=== PATIENT | female | born 1940 | race Caucasian/White ===

== ENCOUNTER 2024-07-12 13:35 | Emergency (ER) | payer MEDICARE, SELFPAY ==
--- OUTSIDE RECORDS SUMMARY | 2024-07-12 13:55 | XMS_ITS | Clinical Summary ---
Author Organization [facility] Address [address] [place] [address] Care Team Providers Care Astrophysics Professor Name Role Phone Anthony Suero MD Primary Care Provider [phone] Allergies Active Allergy Reactions Criticality Noted Date Comments Clonidine Hallucinations Medium 12/10/2019 Medications cholecalciferol (VITAMIN D-3) 1,000 unit capsule Take 1 capsule (1,000 Units total) by mouth daily OTC Active melatonin tablet Take 2 tablets (2 mg total) by mouth nightly as needed for sleep OTC Active aspirin 81 mg enteric coated tablet Take 1 tablet (81 mg total) by mouth daily Active calcium carbonate (OS-LIO) 1,250 mg (500 mg elemental) tablet Take 1 tablet (1,250 mg total) by mouth daily Active Additional Information Patient not taking.Reported on 06/06/2024 polyethylene glycol (MIRALAX) 17 gram packetIndicatio ns:constipation Take 1 packet (17 g total) by mouth daily as needed for constipation Active Additional Information Patient not taking.Reported on 06/06/2024 omeprazole (PriLOSEC) 20 mg capsule Take 1 capsule (20 mg total) by mouth daily Active donepeziL (ARICEPT) 5 mg tablet Take 1 tablet (5 mg total) by mouth nightly 03/26/2 024 Active diphenoxylate-a tropine (LOMOTIL) 2.5-0.025 mg per tabletIndicatio ns:diarrhea Take 1 tablet by mouth 4 (four) times a day as needed for diarrhea 30 tablet 024 Active acetaminophen (TYLENOL) 325 mg tablet Take 2 tablets (650 mg total) by mouth every 6 (six) hours as needed for pain Active furosemide (LASIX) 20 mg tablet TAKE 1 TABLET(20 MG) BY MOUTH DAILY 90 tablet 3 024 Active calcium carbonate-vitam in D3 1,250 mg (500 mg elemental)-400 unit tablet Take by mouth Calcium-500 mg Vitamin d3-20 mcg (800 international units) Active potassium chloride ER 10 mEq CR tablet TAKE 1 TABLET(10 MEQ) BY MOUTH DAILY 90 tablet 024 Active carbidopa-levod opa (SINEMET) 25-100 mg per tablet TAKE 1 TABLET BY MOUTH THREE TIMES DAILY 270 tablet 1 024 Active alendronate (FOSAMAX) 70 mg tablet TAKE 1 TABLET(70 MG) BY MOUTH EVERY 7 DAYS ON AN EMPTY STOMACH. DO NOT LIE DOWN OR EAT FOR 30 MINUTES AFTER TAKING 4 tablet 11 024 Active amLODIPine (NORVASC) 10 mg tabletIndicatio ns:Essential hypertension TAKE 1 TABLET(10 MG) BY MOUTH DAILY 90 tablet 025 Active losartan (COZAAR) 100 mg tabletIndicatio ns:Essential hypertension TAKE 1 TABLET(100 MG) BY MOUTH DAILY 90 tablet 1 025 Active metoprolol XL (TOPROL-XL) 50 mg extended release tabletIndicatio ns:Paroxysmal SVT (supraventricul ar tachycardia) (HCC) TAKE 1 TABLET(50 MG) BY MOUTH DAILY 90 tablet 025 Active losartan (COZAAR) 100 mg tabletIndicatio ns:Essential hypertension TAKE 1 TABLET(100 MG) BY MOUTH DAILY 90 tablet 1 024 2024 Discontinued metoprolol XL (TOPROL-XL) 50 mg extended release tabletIndicatio ns:Paroxysmal SVT (supraventricul ar tachycardia) (HCC) TAKE 1 TABLET(50 MG) BY MOUTH DAILY 90 tablet 024 2024 Discontinued amLODIPine (NORVASC) 10 mg tabletIndicatio ns:Essential hypertension TAKE 1 TABLET(10 MG) BY MOUTH DAILY 90 tablet 024 2024 Discontinued(R eorder) Hospital, Clinic, or Other Facility Administered Medication Ordered Dose Route Frequency Start Date End Date Status cyanocobalamin (Vitamin B-12) injection 1,000 mcgIndications:Vitamin B12 deficiency 1000 mcg IM Every 7 days 09/14/2023 Active Active Problems Problem Noted Date Diagnosed Date Parkinsonism, unspecified Parkinsonism type 01/2024 Assessment & Plan (04/28/2024 4:22 PM OAKES MACHINE OPERATOR): Continue f/u with neurology and will montior respnose. WIll continue on sinemet. Closed compression fracture of L4 vertebra 10/17 Closed compression fracture of L3 vertebra 10/17 Assessment & Plan (04/28/2024 4:22 PM OAKES MACHINE OPERATOR): Sig pain relief s/p vertebroplasty and will continue to follow response. Closed compression fracture of L2 vertebra 10/17 Skin breakdown 06/13/2023 Assessment & Plan (06/13/2023 2:28 PM OAKES MACHINE OPERATOR): Continue topical dressing and will follow with home health. Stay off bottom as much as possible. When sitting sit on soft cushions. Hospital discharge follow-up 06/13/2023 Assessment & Plan (06/13/2023 2:29 PM OAKES MACHINE OPERATOR): IVerona NP have personally reviewed pertinent inpatient and/or ED records, including discharge medications and [employer] if applicable. This patient's discharge medication list has been reviewed and reconciled with her outpatient medication list and has also been reviewed with patient and/or caregiver. I have noted any changes. Mitral regurgitation 05/19/2023 Assessment & Plan (05/24/2023 11:56 AM OAKES MACHINE OPERATOR): Last TTE 04/2023 with no WMAs, EF 62%, diastolic dysfunction present, mild LAE, mod pHTN based on RV sys pressure (~50mmHg), mild to mod TR, dilated IVC with poor inspiratory collapse c/w elevated R atrial pressures, mod-severe MV regurg, - cautious use of MIVFs - per last cards note 04/2023, plan for IVIS outpatient Giant cell arteritis (CMS/HCC) 05/18/2023 Overview (06/14/2023): - Initial patient presentation 05/18/2023: vision loss / blurry vision OS in elderly white female with elevated ESR (156.6) and CRP (>145). - Initial exam showed OS significant for reduced VA (CF at face) compared to contralateral side, rAPD, chalky-white/pallid optic disc edema, CWS. Additional supporting factors include normal cup-to-disc ratio in contralateral side (thus less likely NAION) - Temporal arteries palpated with somewhat bounding pulse bilaterally - MRI results were limited due to artifact, no evidence of orbital pathology - 05/23/2023 right temporal biopsy was non-diagnostic (specimen consisted of skeletal muscle; artery not present) - Overall, AION OS with markedly elevated ESR / CRP and fundus exam in conjunction with her demographic was highly concerning for an arteritic cause (A-AION). - Was discharged 05/27/2022 on 60 mg pred x7day, with taper 50-40-35-30 mg daily q7 days Assessment & Plan (04/28/2024 4:20 PM OAKES MACHINE OPERATOR): Continue f/u with Dr. Mackenzie. Reduced prednisone to 2mg daily and goal is to be completely off of prednisone in May 2024. Will discuss plans for add on therapy for OP in addition to oral calcium/vitamin D and ongoing add on therapy for alendronate Assessment & Plan (03/21/2024 5:13 PM CDT): Has not noticed any changes to her vision, though is feeling much better over all. Now on 5mg daily and will be tapering gradually. Will stop prednisone at the end of May. ESR/CRP collected today and will follow with rheum in June. OCT nerve show stable, unchanged, thinning HVF 24-2 was done today, 10-2 done in the past. Pt appears to continue to have some central vision and minimal peripheral vision OS. RTC in mid June Assessment & Plan (01/10/2024 2:00 PM CDT): Scheduled follow up Mar 21 with ophthalmology. Assessment & Plan (11/12/2023 5:02 PM CDT): Despite the non-diagnostic temporal artery biopsy the remainder of her background, history, testing, and exam are all entirely consistent with GCA and that a alternative diagnosis is unlikely. Following with rheumatology for immunosuppression - currently on prednisone 5mg, had discussed with actemra during previous visit (not interested in pursuing actemra at this time). Exam today overall stable. Improving visual acuity. OCT demonstrated thinning OS consistent with sequela of GCA. HVF 10-2 showed severe restriction in peripheral vision OS. Discussed at length with patient and family the irreversible nature of vision loss due to GCA RTC 4 months or sooner, HVF 10-2, DFE OU Assessment & Plan (07/27/2023 4:40 PM OAKES MACHINE OPERATOR): Despite the non-diagnostic temporal artery biopsy the remainder of her background, history, testing, and exam are all entirely consistent with GCA and that a alternative diagnosis is unlikely. Following with rheumatology for immunosuppression - currently on prednisone, had discussed with actemra during previous visit. Exam today overall stable. Stable visual acuity. OCT demonstrated thinning OS consistent with sequela of GCA. HVF 10-2 showed severe restriction in peripheral vision OS. Discussed at length with patient and family the irreversible nature of vision loss due to GCA. Discussed low-vision resources and provided brochure for [employer] to patient and family. RTC 2 months or sooner, HVF 10-2, OCT RNFL Assessment & Plan (06/17/2023 4:17 PM OAKES MACHINE OPERATOR): Seeing Rheumatology today to manage steroids. Exam today demonstrates likely vision loss bilaterally from GCA, but subjectively stable. Will continue to follow for subsequent testing. Discussed at length that despite the non-diagnostic temporal artery biopsy the remainder of her background, history, testing, and exam are all entirely consistent with GCA and that a alternative diagnosis is unlikely. Discussed at length with patient and family unfortunate poor prognosis for improvement in vision. Discussed low-vision resources and provided brochure for [employer] to patient and family. RTC 6 weeks for testing (HVF 10-2, OCT RNFL/GCC) Assessment & Plan (06/13/2023 2:29 PM OAKES MACHINE OPERATOR): Vision improving. She has follow-up with specialist. Will continue with prednisone. Assessment & Plan (05/25/2023 11:38 AM OAKES MACHINE OPERATOR): Pt reports vision blurriness for at least 12 days (her son thinks more like 7 days) that includes visual field loss. She describes her binocular vision as blurry , her monocular L eye vision as complete blackness in upper ku, and her monocular R eye vision as floaters and purple . She denies any headaches, neurologic symptoms, AMS. - In ED, ophtho examined and gave dose of methylpred 1g IV. MRI brain orbits showing severe white matter disease, but no orbit pathology. Ophtho c/f GCA - Ophtho c/s. Reevaluated pt, improved acuity, but decreased color vision. - rheumatology consulted, recommending pred 60 x7d, then prolonged taper (as described in consult note). To follow up in clinic - Pt unable to get L side biopsy because of previous facelift with scarring. R side biopsy /, pending path report - Prednisone 60mg daily - Pt will likely require bactrim at d/c Vision loss of left eye 05/18/2023 Assessment & Plan (05/26/2023 9:47 AM OAKES MACHINE OPERATOR): -Ophtho exam 1/3 showing improvement in vision acuity b/l, essentially stable from 05/20, but mildly decreased color vision. - Family would like to follow up with ophtho outpt Encounter for annual wellness exam in Medicare p atient 12/15/2021 Assessment & Plan (01/10/2024 2:19 PM CDT): Preventive exam; reviewed recommended preventive screenings and vaccinations. Encourage annual flu vaccine. Wear sunscreen/protective clothing when outdoors. Assessment & Plan (12/18/2022 9:39 AM CDT): Preventive exam; reviewed recommended preventive screenings and vaccinations. Encourage annual flu vaccine. -DEXA ordered today Assessment & Plan (12/15/2021 1:34 PM CDT): Preventive exam; reviewed recommended preventive screenings and vaccinations. Encourage annual flu vaccine. Wear sunscreen/protective clothing when outdoors. Localized swelling of right lower leg 12/15/2021 Assessment & Plan (12/15/2021 9:55 AM CDT): No injury, no recent travel, no fevers, redness or pain. Will check US to rule out dvt. Discussed need to avoid crossing legs and follow up immediately for changes. Nail fungus 08/08/2021 Assessment & Plan (06/13/2023 2:27 PM OAKES MACHINE OPERATOR): Continue with topical antifungal on hand. Also recommend soaking with warm Epsom salt soak prior to applying medication. Will monitor response. Assessment & Plan (12/15/2021 9:56 AM CDT): Using topical OTC antifungal with mild improvement. Discussed need to continue treatment and monitoring. Assessment & Plan (08/08/2021 1:00 PM CDT): Discussed topical treatment options with patient and her son. Recommended avoiding nail Finnish during treatment. May need to use coupon from drug [employer] website for medication. Patient declined referral to podiatry. Osteoporosis without current pathological fractu re 01/03/2021 Assessment & Plan (04/28/2024 4:21 PM OAKES MACHINE OPERATOR): See discussion as above. Patinet and family given information on Forteo and Evenity and discussion fo alternater mechanisms of action and also interaction with comorbiditeis. Reviewed fall prevention and patient is ambulating with assistance of a walker and rollator. Assessment & Plan (05/19/2023 1:14 AM OAKES MACHINE OPERATOR): - c/w home vit D. On calcium at home as well, she did not know dose. Ordered oscal 1250mg daily. Assessment & Plan (12/18/2022 9:39 AM CDT): Patient declines medication for treatment of osteoporosis. Continue calcium and vitamin-D supplement in addition to daily weight-bearing exercises. Repeat bone density testing ordered today. Assessment & Plan (08/08/2021 1:01 PM CDT): Patient declines treatment with Fosamax as she is concerned about side effects. She is not currently taking any calcium supplementation so this was recommended today. Discussed importance of regular weight-bearing exercise. Assessment & Plan (02/25/2021 11:53 AM CDT): The patient's son asked me about her osteoporosis and treatment. My impression based on her osteoporosis screening which was abnormal puts her at higher risk for hip fracture and so consideration for treatment of her osteoporosis would be reasonable. Assessment & Plan (01/03/2021 10:28 AM CDT): Bone density confirms osteoporosis in the hip greater than the spine. Laboratory testing has confirmed normal calcium. Will check vitamin D. Continue vitamin D supplementation Continue calcium in the diet Will start Fosamax 70 mg once weekly with 8 ounces of water. We will take this medication weekly for the next 5 years. Reviewed medication administration with patient and adult son. We will plan to recheck bone density every 2 years even while we are on therapy. BMI 24.0-24.9, adult 01/03/2021 Assessment & Plan (01/10/2024 2:19 PM CDT): No changes in weight. Appetite has been stable. Assessment & Plan (12/18/2022 9:40 AM CDT): Discussed healthy diet and importance of regular physical activity. Assessment & Plan (12/15/2021 1:34 PM CDT): Discussed healthy diet and importance of regular physical activity. Assessment & Plan (08/08/2021 12:59 PM CDT): Discussed healthy diet and importance of regular physical activity. BMI is acceptable for this patient. Assessment & Plan (01/03/2021 10:33 AM CDT): BMI is acceptable for this patient. Tinnitus, right 12/12/2019 Assessment & Plan (12/12/2019 11:22 AM CDT): Reduce caffeine intake BPPV (benign paroxysmal positional vertigo), lef t 12/12/2019 Assessment & Plan (12/23/2019 11:44 AM CDT): Left Benign Positional Vertigo Right ear ringing persists Post-Kevin maneuver instructions and Handout provided and reviewed in detail line by line Assessment & Plan (12/12/2019 11:23 AM CDT): Left Benign Positional Vertigo treated with Kevin Maneuver today Call if dizziness returns Reduce caffeine intake Post-Kevin instruction discussed and Handout provided Essential hypertension 05/12/2019 Assessment & Plan (04/28/2024 4:23 PM OAKES MACHINE OPERATOR): Stable on lsoartan and metoprolol XL. No sig orthostasis. Cnotinues on amlodipine. Assessment & Plan (01/10/2024 2:20 PM CDT): Blood pressure is well controlled, continue present management. Assessment & Plan (05/24/2023 11:50 AM OAKES MACHINE OPERATOR): - BP meds restarted, initially held for soft BP readings - restarted home metop XL 50 and losartan 100, amlo 10. - Currently normotensive Assessment & Plan (12/18/2022 9:39 AM CDT): Blood pressure is well controlled today, 122/62. Patient is currently taking losartan 100 mg, metoprolol 50 mg and amlodipine 10 mg tablet once daily. No changes made today, continue current regimen. She denies any chest pain, shortness the breath, fatigue or lower extremity edema. Assessment & Plan (12/15/2021 1:29 PM CDT): HPI: Condition is stable A&P: Discussed/ordered labs, encouraged healthy, low carbohydrate lifestyle and at least 150min/week of exercise, continue on losartan and amlodipine. Following with cardiology every 6 months. Assessment & Plan (08/08/2021 12:11 PM CDT): Stable on current medication regimen, no changes made today. Following with cardiology every 6 months. Assessment & Plan (01/03/2021 10:19 AM CDT): BP 146/62 in office today. Patient aware to call if home BP readings are elevated. Will continue to monitor. Next OV with pbx manager 02/08/21. Assessment & Plan (02/10/2020 10:24 AM CDT): Patient's blood pressure appears to be under adequate control. If additional treatment is required consideration to chlorthalidone 25 mg daily could be considered. Assessment & Plan (05/12/2019 5:28 AM OAKES MACHINE OPERATOR): Holding home losartan and amlodipine Patient was started on metoprolol. Paroxysmal SVT (supraventricular tachycardia) Assessment & Plan (04/28/2024 4:21 PM OAKES MACHINE OPERATOR): Continues on metoprolol XL and will follow response. Assessment & Plan (05/19/2023 1:06 AM OAKES MACHINE OPERATOR): Hx of this. No episodes in years. - c/w metop Assessment & Plan (12/18/2022 9:38 AM CDT): Managed by Cardiology, stable with use of metoprolol. Assessment & Plan (08/08/2021 12:11 PM CDT): Follows with cardiology. Has not had any issues after she was converted with adenosine 02/2021. Doing well on current regimen of metoprolol. Assessment & Plan (02/25/2021 11:54 AM CDT): Patient has had no recurrence of persistent SVT. She will continue with conservative management. Assessment & Plan (02/10/2020 10:24 AM CDT): Patient's PSVT remains under good control. I see no need for alteration to her medical regimen. Assessment & Plan (05/12/2019 5:35 AM OAKES MACHINE OPERATOR): Resolved with adenosine. The currently in sinus rhythm. Will continue with metoprolol. Non-STEMI (non-ST elevated myocardial infarction ) ([facility]) 05/12/2019 Assessment & Plan (05/12/2019 5:28 AM OAKES MACHINE OPERATOR): Patient currently denies any chest pain. Denies any palpitations or dizziness. States overall states that feels much better. First set of troponins were negative. Following troponins continue to trend up. EKG was negative for any acute ischemia. Will start the patient on heparin drip. Continue with metoprolol. Blood pressure on soft side. Will be holding amlodipine and losartan for now. Continue with aspirin. Nitroglycerin as needed for chest pain. Will get cardiology consult in a.m.. Telemetry monitoring Echo in a.m.. Chest pain Elevated troponin level Resolved Problems Problem Noted Date Diagnosed Date Resolved Date UTI (urinary tract infection) 05/24/2023 05/25/2023 Assessment & Plan (05/24/2023 12:07 PM OAKES MACHINE OPERATOR): UTI growing 100k E coli. Pt denies dysuria, but can get confused. - Afebrile, WBC nml, at baseline mentation at this time - Ceftriaxone 1g q24 (05/21-05/25) Vertigo 02/10/2020 02/10/2020 Encounters Date Type Department Care Team Description 06/24/2024 11:00 AM OAKES MACHINE OPERATOR Office Visit [facility] [place] [address] [place] [phone] Cece Dumont, TIER LIFT TRUCK OPERATOR Skin tear of forearm without complication, left, initial encounter (Primary Dx) 06/06/2024 2:30 PM OAKES MACHINE OPERATOR Office Visit [facility] at [address] [place] [phone] Aquilino Hill MD Nonrheumatic mitral valve regurgitation (Primary Dx) 04/28/2024 11:15 AM OAKES MACHINE OPERATOR Office Visit [facility] [address] [phone] Anthony Suero MD Giant cell arteritis (CMS/HCC) (HCC) (Primary Dx); Osteoporosis without current pathological fracture, unspecified osteoporosis type; Paroxysmal SVT (supraventricular tachycardia) (HCC); Closed compression fracture of L3 lumbar vertebra with routine healing, subsequent encounter; Parkinsonism, unspecified Parkinsonism type (HCC); Essential hypertension from Last 3 Months Immunizations Immunization Administration Dates Next Due Influenza, Quadrivalent, Hig h Dose, Preservative Free, Intrr 02/18/2021 Influenza, Trivalent, High D ose, Split, Preservative Free, Intramuscular 02/07/2020,02/25/2019,01/27/2018,02/18,02/28/2016,03/28/2014 Influenza, Trivalent, IM (MDV) 02/18/2018,2012,04/04/2012 Influenza, Trivalent, Preser vative Free, Intramuscular 03/09/2015 Influenza, Unspecified 04/03/2024,2022,03/03/2022,02/18,02/18/2019,05/20/2012 Pneumococcal Conjugate PCV 13 02/13/2018 Pneumococcal Polysaccharide PPV23 11/12/2019 Tdap 12/08/2020 ZOSTER LIVE 01/06/2013 Surgical History Surgery Date Site/Laterality Comments ABDOMINAL SURGERY iud that was implanted and had to be removed EYE SURGERY Bilateral cataracts, lens was placed also HYSTERECTOMY TONSILLECTOMY APPENDECTOMY Medical History Medical History Date Comments HTN (hypertension) Vertigo Arthritis History of transfusion Supraventricular tachycardia (HCC) Chest pain Giant cell arteritis (CMS/HCC) (HCC) 05/18/2023 Osteoporosis Family History Medical History Relation Name Comments Diabetes Father Pop pavish Relation Name Status Comments Father Pop pavish Mother Social History Tobacco Use Types Packs/Day Years Used Date Smoking Tobacco: Never Cigarettes Smokeless Tobacco: Never Tobacco Cessation:Counseling Given: Not Answered Alcohol Use Standard Drinks/Week Comments Never 0 (1 standard drink = 0.6 oz pur e alcohol) AUDIT-C Answer Date Recorded Q1: How often do you have a drink containing alcohol? Never 11/05/2023 Q2: How many drinks containi ng alcohol do you have on a typical day when you are drinking? Patient does not drink Q3: How often do you have si x or more drinks on one occasion? Never 11/05/2023 PHQ-2 Answer Date Recorded PHQ-2 Total Score (If total score is 3 or more points, staff should administer the PHQ-9) 0 04/28/2024 Personal Safety Answer Date Recorded Have you ever been in or are you currently in a harmful physical or emotional relationship or is someone making you feel afraid or unsafe? Denies 11/05/2023 Comments No Sex and Gender Information Value Date Recorded Sex Assigned at Not on file Legal Sex Female 2:17 AM OAKES MACHINE OPERATOR Gender Identity Not on file Sexual Orientation Not on file Obstetrics History Para Term AB IAB SAB Ectopic Multiple Livin g Live Births 4 4 4 Date Outcome GA Total Labor Labor//3rd Weight Sex Type Anes PTL Bertha A1 A5 Name Clin Term Term Term Term Last Filed Vital Signs Vital Sign Reading Time Taken Comments Blood Pressure 90/48 06/24/2024 11:07 AM OAKES MACHINE OPERATOR Pulse 68 06/24/2024 11:07 AM OAKES MACHINE OPERATOR Temperature 36.2 C (97.2 F) 06/24/2024 11:07 AM OAKES MACHINE OPERATOR Respiratory Rate 18 06/24/2024 11:07 AM OAKES MACHINE OPERATOR Oxygen Saturation 97% 06/24/2024 11:07 AM OAKES MACHINE OPERATOR Inhaled Oxygen Concentration - - Weight 54.9 kg (121 lb) 06/24/2024 11:07 AM OAKES MACHINE OPERATOR Height 149.9 cm (4' 11 ) 06/24/2024 11:07 AM OAKES MACHINE OPERATOR Body Mass Index 24.44 06/24/2024 11:07 AM OAKES MACHINE OPERATOR Plan of Treatment Health Maintenance Due Date Last Done Comments Hepatitis B Screening 1958 Zoster Vaccine (2 of 3) 03/03/2013 01/06/2013 Well Visit 65+ 01/09/2025 01/10/2024, 07/05/2022, 12/15/2021, Additional history exists Depression Screening 04/28/2025 04/28/2024, 01/10/2024, 10/23/2023, Additional history exists Fall Risk Assessment 04/28/2025 04/28/2024, 01/10/2024, 10/18/2023, Additional history exists Osteoporosis Screening-Bone Density Scan 03/21/2026 03/21/2024, 04/25/2023, 04/25/2023, Additional history exists DTaP/Tdap/Td Vaccine (2 - Td or Tdap) 12/08/2030 12/08/2020 Pneumococcal vaccine 65+ Completed 11/12/2019, 01/20 Influenza Vaccine Completed 04/03/2024, , 03/03/2022, Additional history exists Medical Devices Implanted Type Area Mount Loader Device Identifier Shelf Expiration Date Model / Serial / Lot [id number].tv Vertaplex Hv Autoplex Without Needle Delivery System Kit Bone [id number] - [id number] Implanted:Qty : 1 on 11/05/2023 by Harris Paez MD at [facility] Bone Cement N/A: Spine Lumbar [employer] 03/20/2025 [id number] / / [id number] Description:L2-L4 Procedures Procedure Name Priority Date/Time Associated Diagnosis Comments DEXA AXIAL SKELETON BONE DENSITY 1 OR MORE SITES Schedule Routine, Read Routine (OP Routine) 03/21/2024 12:26 PM CDT Age-related osteoporosis without current pathological fracture from Last 3 Months or Most Recently Relevant to Health Maintenance Results * Dexa Axial Skeleton Bone Density 1 or 2 Site (03/21/2024 12:26 PM CDT) Anatomical Region Laterality Modality Body N/A Radiographic Martha ging Narrative 03/21/2024 4:28 PM CDT Patient Name: Bozena Howe Date of : 1940 Date of scan: 03/21/2024 Bone mineral density was performed on a [employer] Discovery Densitometer. Based on machine cross-calibration and precision studies the least significant changes of this densitometer is 0.024 g/cm2 at the spine, 0.020 g/cm2 at the total proximal femur, and 0.014g/cm2 at the forearm. HISTORY: This is a 83 y.o. postmenopausal female with a history of osteoporosis and vitamin D deficiency. She reports that she has never smoked. She has never used smokeless tobacco. Currently on treatment with calcium, vitamin D, alendronate (Fosamax), glucocorticoids, and diuretics and current complaint of back pain. INDICATIONS: Menopause status, treatment monitoring, history of prior vertebral fracture, vitamin D deficiency, currently on 5 mg of glucocorticoids for the past 10 months, and history of osteoporosis. FINDINGS: BONE MINERAL DENSITY OF THE PROXIMAL FEMUR Bone Mineral Density (BMD) of the left hip total was found to be 0.550 gm/cm2. This corresponds to a T-score standard deviations from the mean of young adults of -3.2. Femoral neck is 0.570 gm/cm2 with a T-score (standard deviations from the mean of young adults) of -2.5. There is no previous study available for comparison. BONE MINERAL DENSITY OF THE FOREARM Bone Mineral density (BMD) of the left proximal 1/3 of the radius measures 0.471 gm/cm2. This corresponds to a T-score (standard deviations from the mean of young adults) of -3.7. There is no previous study available for comparison. A forearm bone density study was performed instead of a spine study due to history of vertebral compression fracture. SUMMARY: Bone mineral density shows evidence of osteoporosis and marked increase risk of fracture. ADDITIONAL COMMENTS: Postmenopausal Women and Men Over 50: Diagnostic criteria: Osteoporosis: BMD at or below -2.5 T-score; Osteopenia (low bone mass): BMD between -1.0 and -2.5 T-score. If the patient has a history of a fragility fracture, a fracture that occurred with trauma equivalent to a fall from a standing position or less, then the diagnosis is osteoporosis regardless of bone density. The history and data sections of the bone mineral density scan were prepared by Shira Hobbs(Gianna)(Yvonne)(BD) CBDT who is accredited by the International Society of Clinical Densitometry. The overall patient assessment and scan interpretation were performed by Rylie Salinas M.D. who is certified by the International Society of Clinical Densitometry. [id number] Fracisco De Leon MD IM DXA PROCEDURES Final Result from Last 3 Months or Most Recently Relevant to Health Maintenance Insurance MEDICARE SOLUTIONS MEDICARE SOLUTIONS [facility] MEDICARE Address: [address] [place], [place] [id number] MEDICARE SOLUTIONS [place] [id number] Advance Directives For more information, please contact: [phone] * Full Code (Latest Code Status on File) Date Activated Date Inactivated Comments 05/19/2023 2:01 AM 05/27/2023 7:22 PM * Full Code Date Activated Date Inactivated Comments 05/11/2019 8:20 PM 05/12/2019 7:47 PM Care Teams Astrophysics Professor Relationship Specialty Start Date End Date Anthony Suero MD [address] [place] [address] PCP - General Family Medicine 11/12/19
--- OUTSIDE RECORDS SUMMARY | 2024-07-12 13:55 | XMS_ITS | Referral Summary ---
Author Organization [facility] (formerly [facility]) Address [address] [place] [address] Care Team Providers Care Mine Car Mechanic Name Role Phone Unavailable Primary Care Provider Unavailabl e Source Comments [facility] (formerly [facility]),non-owned Affiliates and Associated Physician Practices is amultiple site organization consisting of ambulatory clinics and hospital sitesin [place], [place], [place] and [place]. This disclosure is being madepursuant to the Care Everywhere program and may not contain all information available regarding this patient. Last updated 18.[facility] (formerly [facility]) Allergies No known active allergies Medications * Be aware that medications may not be up to date on this document. Alwaysverify current medications with the patient. Medication Sig Dispensed Refills Start Date End Date Status LOSARTAN POTASSIUM PO Act josue AMLODIPINE BESYLATE PO Ac tive Social History Tobacco Use Types Packs/Day Years Used Date Smoking Tobacco: Never Sex and Gender Information Value Date Recorded Sex Assigned at Not on file Gender Identity Not on file Sexual Orientation Not on file Last Filed Vital Signs Vital Sign Reading Time Taken Comments Blood Pressure 124/80 07/20/2017 2:57 PM INSPECTOR FINISHING Pulse 66 07/20/2017 2:57 PM INSPECTOR FINISHING Temperature 36.8 C (98.3 F) 07/20/2017 2:57 PM INSPECTOR FINISHING Respiratory Rate - - Oxygen Saturation - - Inhaled Oxygen Concentration - - Weight 60.8 kg (134 lb) 07/20/2017 2:57 PM INSPECTOR FINISHING Height 153.7 cm (5' 0.5 ) 07/20/2017 2:57 PM INSPECTOR FINISHING Body Mass Index 25.74 07/20/2017 2:57 PM INSPECTOR FINISHING Plan of Treatment Not on file
--- OUTSIDE RECORDS SUMMARY | 2024-07-12 13:55 | XMS_ITS | Patient Health Summary ---
Author Organization [facility] Address [address] [place] [address] Care Team Providers Care Pin Game Machine Inspector Name Role Phone Unavailable Primary Care Provider Unavailabl e Note from [facility],non-owned Affiliates and Associated Physician Practices is amultiple site organization consisting of ambulatory clinics and hospital sitesin [place], [place], [place] and [place]. This disclosure is being madepursuant to the Care Everywhere program and may not contain all information available regarding this patient. Last updated 18.[facility] Allergies No known active allergies Medications * Be aware that medications may not be up to date on this document. Alwaysverify current medications with the patient. * LOSARTAN POTASSIUM PO * AMLODIPINE BESYLATE PO Social History Tobacco Use Types Packs/Day Years Used Date Smoking Tobacco: Never Sex and Gender Information Value Date Recorded Sex Assigned at Not on file Gender Identity Not on file Sexual Orientation Not on file Last Filed Vital Signs Vital Sign Reading Time Taken Comments Blood Pressure 124/80 07/20/2017 2:57 PM DIRECTOR CENTER Pulse 66 07/20/2017 2:57 PM DIRECTOR CENTER Temperature 36.8 C (98.3 F) 07/20/2017 2:57 PM DIRECTOR CENTER Respiratory Rate - - Oxygen Saturation - - Inhaled Oxygen Concentration - - Weight 60.8 kg (134 lb) 07/20/2017 2:57 PM DIRECTOR CENTER Height 153.7 cm (5' 0.5 ) 07/20/2017 2:57 PM DIRECTOR CENTER Body Mass Index 25.74 07/20/2017 2:57 PM DIRECTOR CENTER
--- OUTSIDE RECORDS SUMMARY | 2024-07-12 13:55 | XMS_ITS | Clinical Summary ---
Author Organization [facility] Address [address] [place] [address] Care Team Providers Care Storage Battery Charger Name Role Phone Unavailable Primary Care Provider Unavailabl e Source Comments [facility],non-owned Affiliates and Associated Physician Practices is amultiple site organization consisting of ambulatory clinics and hospital sitesin [place], [place], [place] and [place]. This disclosure is being madepursuant to the Care Everywhere program and may not contain all information available regarding this patient. Last updated 18.[facility] Allergies No known active allergies Medications * [...] Comments Blood Pressure 124/80 07/20/2017 2:57 PM MOBILE HOME SERVICER Pulse 66 07/20/2017 2:57 PM MOBILE HOME SERVICER Temperature 36.8 C (98.3 F) 07/20/2017 2:57 PM MOBILE HOME SERVICER Respiratory Rate - - Oxygen Saturation - - Inhaled Oxygen Concentration - - Weight 60.8 kg (134 lb) 07/20/2017 2:57 PM MOBILE HOME SERVICER Height 153.7 cm (5' 0.5 ) 07/20/2017 2:57 PM MOBILE HOME SERVICER Body Mass Index 25.74 07/20/2017 2:57 PM MOBILE HOME SERVICER Plan of Treatment Health Maintenance Due Date Last Done Comments BONE DENSITY TESTING 1940 DTAP/TDAP/TD VACCINES (1 - Tdap) 1958 PNEUMOCOCCAL VACCINE 50+ (1 of 1 - PCV) 1989 ZOSTER VACCINE (1 of 2) 1989 Respiratory Syncytial Virus (RSV) Vaccine Pt: or over 60 yrs (1 - 1-dose 75+ series) 2014 COVID-19 VACCINE (1 - 2023- season) 2024 INFLUENZA VACCINE (#1) 2024 9, 02/18/2019, 02/18/2018, Additional history exists DEPRESSION SCREENING 05/21/2024 MEDICARE AWV CALENDAR YEAR 2024 HEPATITIS B VACCINE Aged Out No longe r eligible based on patient's age to complete this topic HIB VACCINE Aged Out No longer eligi ble based on patient's age to complete this topic HPV VACCINE Aged Out No longer eligi ble based on patient's age to complete this topic MENINGOCOCCAL (Group B) VACCINE Aged Out No longer eligible based on patient's age to complete this topic MENINGOCOCCAL VACCINE Aged Out No denise angy eligible based on patient's age to complete this topic
--- OUTSIDE RECORDS SUMMARY | 2024-07-12 13:55 | XMS_ITS | Referral Summary ---
Author Organization [facility] Address [address] [place] [address] Care Team Providers Care House Supervisor Name Role Phone Anthony Suero MD Primary Care Provider + [phone] Encounters Date Type Department Care Team Description 06/24/2024 11:00 AM FOXING PAINTER Office Visit [facility] at [address] [place] [address] Cece Dumont, ARMAAN Skin tear of forearm without complication, left, initial encounter (Primary Dx) 06/06/2024 2:30 PM FOXING PAINTER Office Visit [facility] at [address] [place] [id number] Aquilino Hill MD Nonrheumatic mitral valve regurgitation (Primary Dx) 04/28/2024 11:15 AM FOXING PAINTER Office Visit [facility] [address] [address] Anthony Suero MD Giant cell arteritis (CMS/HCC) (HCC) (Primary Dx); Osteoporosis without current pathological fracture, unspecified osteoporosis type; Paroxysmal SVT (supraventricular tachycardia) (HCC); Closed compression fracture of L3 lumbar vertebra with routine healing, subsequent encounter; Parkinsonism, unspecified Parkinsonism type (HCC); Essential hypertension from Last 3 Months Allergies Active Allergy Reactions Criticality Noted Date [...] tablet (5 mg total) by mouth nightly Active diphenoxylate-a tropine (LOMOTIL) 2.5-0.025 mg per tabletIndicatio ns:diarrhea Take 1 tablet by mouth 4 (four) times a day as needed for diarrhea 30 tablet Active acetaminophen (TYLENOL) 325 mg tablet Take 2 tablets (650 mg total) by mouth every 6 (six) hours as needed for pain Active furosemide (LASIX) 20 mg tablet TAKE 1 TABLET(20 MG) BY MOUTH DAILY 90 tablet 3 Active calcium carbonate-vitam in D3 1,250 mg (500 mg elemental)-400 unit tablet Take by mouth Calcium-500 mg Vitamin d3-20 mcg (800 international units) Active potassium chloride ER 10 mEq CR tablet TAKE 1 TABLET(10 MEQ) BY MOUTH DAILY 90 tablet Active carbidopa-levod opa (SINEMET) 25-100 mg per tablet TAKE 1 TABLET BY MOUTH THREE TIMES DAILY 270 tablet 1 Active alendronate (FOSAMAX) 70 mg tablet TAKE [...] MOUTH DAILY 90 tablet 024 2024 Discontinued(R michael) Hospital, Clinic, or Other Facility Administered Medication Ordered Dose Route Frequency Start Date End Date Status cyanocobalamin (Vitamin B-12) injection 1,000 mcgIndications:Vitamin B12 deficiency 1000 mcg IM Every 7 days 09/14/2023 Active Active Problems Problem Noted Date Diagnosed Date Parkinsonism, unspecified Parkinsonism type 01/2024 Assessment & Plan (04/28/2024 4:22 PM FOXING PAINTER): Continue f/u with neurology and will montior respnose. WIll continue on sinemet. Closed compression fracture of L4 vertebra 10/17 Closed compression fracture of L3 vertebra 10/17 Assessment & Plan (04/28/2024 4:22 PM FOXING PAINTER): Sig pain relief s/p vertebroplasty and will continue to follow response. Closed compression fracture of L2 vertebra 10/17 Skin breakdown 06/13/2023 Assessment & Plan (06/13/2023 2:28 PM FOXING PAINTER): Continue topical dressing and will follow with home health. Stay off bottom as much as possible. When sitting sit on soft cushions. Hospital discharge follow-up 06/13/2023 Assessment & Plan (06/13/2023 2:29 PM FOXING PAINTER): I, Verona Garcia NP have personally reviewed pertinent inpatient and/or ED records, including discharge medications and [employer] if applicable. This patient's discharge medication list has been reviewed and reconciled with her outpatient medication list and has also been reviewed with patient and/or caregiver. I have noted any changes. Mitral regurgitation 05/19/2023 Assessment & Plan (05/24/2023 11:56 AM FOXING PAINTER): Last TTE 04/2023 with no WMAs, EF [...] days Assessment & Plan (04/28/2024 4:20 PM FOXING PAINTER): Continue f/u with Dr. Mackenzie. Reduced prednisone [...] OU Assessment & Plan (07/27/2023 4:40 PM FOXING PAINTER): Despite the non-diagnostic temporal artery biopsy the remainder of her background, history, testing, and exam are all entirely consistent with GCA and that a alternative diagnosis is unlikely. Following with rheumatology for immunosuppression - currently on prednisone, had discussed with marci during previous visit. Exam today overall stable. [...] RNFL Assessment & Plan (06/17/2023 4:17 PM FOXING PAINTER): Seeing Rheumatology today to manage steroids. Exam [...] RNFL/GCC) Assessment & Plan (06/13/2023 2:29 PM FOXING PAINTER): Vision improving. She has follow-up with specialist. Will continue with prednisone. Assessment & Plan (05/25/2023 11:38 AM FOXING PAINTER): Pt reports vision blurriness for at least [...] previous facelift with scarring. R side biopsy 05/23, pending path report - Prednisone 60mg daily - Pt will likely require bactrim at d/c Vision loss of left eye 05/18/2023 Assessment & Plan (05/26/2023 9:47 AM FOXING PAINTER): -Ophtho exam 05/23 showing improvement in vision acuity b/l, essentially [...] 08/08/2021 Assessment & Plan (06/13/2023 2:27 PM FOXING PAINTER): Continue with topical antifungal on hand. Also recommend soaking with warm Epsom salt soak prior to applying medication. Will monitor response. Assessment & Plan (12/15/2021 9:56 AM CDT): Using topical OTC antifungal with mild improvement. Discussed need to continue treatment and monitoring. Assessment & Plan (08/08/2021 1:00 PM CDT): Discussed topical treatment options with patient and her son. Recommended avoiding nail Martiniquais during treatment. May need to use coupon from drug [employer] website for medication. Patient declined referral to podiatry. Osteoporosis without current pathological fractu re 01/03/2021 Assessment & Plan (04/28/2024 4:21 PM FOXING PAINTER): See discussion as above. Patinet and family given information on Forteo and Evenity and discussion fo alternater mechanisms of action and also interaction with comorbiditeis. Reviewed fall prevention and patient is ambulating with assistance of a walker and rollator. Assessment & Plan (05/19/2023 1:14 AM FOXING PAINTER): - c/w home vit D. On calcium [...] 05/12/2019 Assessment & Plan (04/28/2024 4:23 PM FOXING PAINTER): Stable on lsoartan and metoprolol XL. No sig orthostasis. Cnotinues on amlodipine. Assessment & Plan (01/10/2024 2:20 PM CDT): Blood pressure is well controlled, continue present management. Assessment & Plan (05/24/2023 11:50 AM FOXING PAINTER): - BP meds restarted, initially held for [...] Will continue to monitor. Next OV with photographer aerial 02/08/21. Assessment & Plan (02/10/2020 10:24 AM CDT): Patient's blood pressure appears to be under adequate control. If additional treatment is required consideration to chlorthalidone 25 mg daily could be considered. Assessment & Plan (05/12/2019 5:28 AM FOXING PAINTER): Holding home losartan and amlodipine Patient was started on metoprolol. Paroxysmal SVT (supraventricular tachycardia) Assessment & Plan (04/28/2024 4:21 PM FOXING PAINTER): Continues on metoprolol XL and will follow response. Assessment & Plan (05/19/2023 1:06 AM FOXING PAINTER): Hx of this. No episodes in years. [...] regimen. Assessment & Plan (05/12/2019 5:35 AM FOXING PAINTER): Resolved with adenosine. The currently in sinus rhythm. Will continue with metoprolol. Non-STEMI (non-ST elevated myocardial infarction ) ([facility]) 05/12/2019 Assessment & Plan (05/12/2019 5:28 AM FOXING PAINTER): Patient currently denies any chest pain. Denies [...] 05/25/2023 Assessment & Plan (05/24/2023 12:07 PM FOXING PAINTER): UTI growing 100k E coli. Pt denies dysuria, but can get confused. - Afebrile, WBC nml, at baseline mentation at this time - Ceftriaxone 1g q24 (05/21-05/25) Vertigo 02/10/2020 02/10/2020 Immunizations Immunization Administration Dates Next Due Influenza, Quadrivalent, Hig h Dose, Preservative Free, Intrr 02/18/2021 Influenza, Trivalent, High D ose, Split, Preservative Free, Intramuscular 02/07/2020,02/25/2019,01/27/2018,02/18,02/28/2016,03/28/2014 Influenza, Trivalent, IM (MDV) 02/18/2018,2012,04/04/2012 Influenza, Trivalent, Preser vative Free, Intramuscular 03/09/2015 Influenza, Unspecified 04/03/2024,2022,03/03/2022,02/18,02/18/2019,05/20/2012 Pneumococcal Conjugate PCV 13 02/13/2018 Pneumococcal Polysaccharide PPV23 11/12/2019 Tdap 12/08/2020 ZOSTER LIVE 01/06/2013 Social History Tobacco Use Types Packs/Day Years [...] on file Legal Sex Female 2:17 AM FOXING PAINTER Gender Identity Not on file Sexual Orientation Not on file Last Filed Vital Signs Vital Sign Reading Time Taken Comments Blood Pressure 90/48 06/24/2024 11:07 AM FOXING PAINTER Pulse 68 06/24/2024 11:07 AM FOXING PAINTER Temperature 36.2 C (97.2 F) 06/24/2024 11:07 AM FOXING PAINTER Respiratory Rate 18 06/24/2024 11:07 AM FOXING PAINTER Oxygen Saturation 97% 06/24/2024 11:07 AM FOXING PAINTER Inhaled Oxygen Concentration - - Weight 54.9 kg (121 lb) 06/24/2024 11:07 AM FOXING PAINTER Height 149.9 cm (4' 11 ) 06/24/2024 11:07 AM FOXING PAINTER Body Mass Index 24.44 06/24/2024 11:07 AM FOXING PAINTER Plan of Treatment Not on file Medical Devices Implanted Type Area Icing Maker Device Identifier Shelf Expiration Date Model / Serial / Lot [place] [employer] Vertap[employer]ople[employer] Without Needle Delivery System Kit Bone [id number] - [id number] Implanted:Qty : 1 on 11/05/2023 by Harris Paez MD at [facility] Bone Cement N/A: Spine Lumbar [employer] 03/20/2025 [id number] / / [id number] Description:L2-L4 Procedures Procedure Name Priority Date/Time Associated [...] Bone mineral density was performed on a [employer] Discovery Densitometer. Based on machine cross-calibration and [...] mineral density scan were prepared by Shira Peña)(Yvonne)(STACI) CBDSha who is accredited by the International Society of Clinical Densitometry. The overall patient assessment and scan interpretation were performed by Rylie Salinas M.D. who is certified by the International Society of Clinical Densitometry. [id number] Fracisco De Leon MD IMG DXA PROCEDURES Final Result from Last 3 Months or Most Recently Relevant to Health Maintenance Insurance MEDICARE SOLUTIONS MEDICARE SOLUTIONS [place] [address] MEDICARE SOLUTIONS Advance Directives For more information, please contact: [phone] * Full Code (Latest Code Status on File) Date Activated Date Inactivated Comments 05/19/2023 2:01 AM 05/27/2023 7:22 PM * Full Code Date Activated Date Inactivated Comments 05/11/2019 8:20 PM 05/12/2019 7:47 PM Care Teams House Supervisor Relationship Specialty Start Date End Date Anthony Suero MD [address] [place] [address] PCP - General Family Medicine 11/12/19
--- OUTSIDE RECORDS SUMMARY | 2024-07-12 13:55 | XMS_ITS | Clinical Summary ---
Author Organization [facility] Address [address] [place] [address] Phone Care Team Providers Care Nurse Practitioner Name Role Phone Anthony Suero MD Primary Care Provider [phone] Scotty Orozco MD Unavailable [phone] Allergies Active Allergy Reactions Criticality Noted Date Comments Clonidine Hallucinations Medium 12/10/2019 Medications losartan potassium-hydr ochlorothiazid e (HYZAAR) 100-25 MG Tablet Take 1 Tab by mouth daily. Active amoxicillin-cl avulanate (AUGMENTIN) 875-125 MG Tablet 1 tablet by mouth twice daily with food. 10 Tab 07/05/19 19 Active Additional Information Patient not taking.Reported on 06/16/2024 Acetaminophen 325 MG Capsule Take 2 Tablets by mouth every 6 hours. as needed for pain 06/09/19 Active amLODIPine (NORVASC) 10 MG Tablet Take 10 mg by mouth daily. Active aspirin EC 81 MG Tablet Delayed Response Take 81 mg by mouth daily. Active calcium carbonate (OS-LIO) 1250 (500 Ca) MG Tablet Take 1 Tablet by mouth daily. Active metoprolol Succinate (TOPROL-XL) 50 MG TABLET SR 24 HR Take 100 mg by mouth daily. Active PREDNISONE, LAWRENCE, PO Take 40 mg by mouth daily. Take for 7 days. Ending on06/13/23 Active predniSONE (DELTASONE) 10 MG Tablet Take 5 mg by mouth daily. 12.5mg daily 06/20/19 Active OMEPRAZOLE PO Take 20 mg by mouth daily. Take before breakfast Active alendronate (FOSAMAX) 70 MG Tablet Take 70 mg by mouth every 7 days. Take 1 tablet (70mg) by mouth every 7 days on an empty stomach Do not lie down or eat for 30 minutes after taking 06/19/19 Active furosemide (LASIX) 20 MG Tablet Take 20 mg by mouth daily. Active potassium chloride SA (KLORCON M) 10 MEQ Tablet Controlled ReleaseIndicat ions:Hypokalem ia Take 10 mEq by mouth daily. Take 1 tablet (10 meq) by mouth daily Indications: Low Amount of Potassium in the Blood 07/12/19 Active VITAMIN D PO Take by mouth. Ac tive donepezil (ARICEPT) 5 MG Tablet Take 1 Tablet by mouth nightly. 90 Tablet 1 02/19/20 Active cyanocobalamin (VITAMIN B-12) 1000 MCG/ML Solution 1,000 mcg by Intramuscular route once a week. 09/14/19 24 Active carbidopa-levo dopa (SINEMET) 25-100 MG Tablet Take 2 Tablets by mouth 3 times daily. 180 Tablet 3 06/16/19 25 Active carbidopa-levo dopa (SINEMET) 25-100 MG Tablet Take 1 Tablet by mouth 3 times daily. 05/15/20 24 025 Discontin ued(Reord er) Active Problems Problem Noted Date Diagnosed Date Mitral regurgitation 05/19/2023 Overview (08/10/2023): Last Assessment & Plan: Last TTE 04/2023 with no WMAs, EF 62%, diastolic dysfunction present, mild LAE, mod pHTN based on RV sys pressure (~50mmHg), mild to mod TR, dilated IVC with poor inspiratory collapse c/w elevated R atrial pressures, mod-severe MV regurg, - cautious use of MIVFs - per last cards note 04/2023, plan for IVIS outpatient Giant cell arteritis 05/18/2023 Overview (08/10/2023): - Initial patient presentation 05/18/2023: vision loss [...] with taper 50-40-35-30 mg daily q7 days Last Assessment & Plan: Despite the non-diagnostic temporal artery biopsy the remainder of her background, history, testing, and exam are all entirely consistent with GCA and that a alternative diagnosis is unlikely. Following with rheumatology for immunosuppression - currently on prednisone, had discussed with marci during previous visit. Exam today overall stable. Stable visual acuity. OCT demonstrated thinning OS consistent with sequela of GCA. F 10-2 showed severe restriction in peripheral vision OS. Discussed at length with patient and family the irreversible nature of vision loss due to GCA. Discussed low-vision resources and provided brochure for [employer] to patient and family. RTC 2 months or sooner, [facility] 10-2, OCT RNFL Encounters Date Type Department Care Team Description 06/16/2024 11:00 AM CLERK CARRIER [facility] [address] [place] [address] Scotty Orozco MD Parkinson's disease without dyskinesia or fluctuating manifestations (HCC) (Primary Dx); Giant cell arteritis (HCC); Cognitive decline Discharge Disposition: Discharged to home or Selfcare 06/14/2024 Travel from Last 3 Months Immunizations Immunization Administration Dates Next Due Influenza Vaccine less than 3 yrs 02/18/2018 Family History Medical History Relation Name Comments Diabetes Father Stroke Father Relation Name Status Comments Father Mother Social History Tobacco Use Types Packs/Day Years Used Date Smoking Tobacco: Never Smokeless Tobacco: Never Tobacco Cessation:Counseling Given: Not Answered Alcohol Use Standard Drinks/Week Comments No 0 (1 standard drink = 0.6 oz pur e alcohol) [facility] Utilities Answer Date Recorded In the past 12 months has e electric, gas, oil, or water company threatened to shut off services in your home? No 08/10/2023 Social Connection and Isolat ion Panel [NHANES] Answer Date Recorded In a typical week, how many times do you talk on the phone with family, friends, or neighbors? More than three times a week 08/10/2023 How often do you get togethe r with friends or relatives? More than three times a week 08/10/2023 How often do you attend chur ch or cheondoism services? Never 08/10/2023 Do you belong to any clubs o r organizations such as sabianist groups, unions, fraternal or athletic groups, or school groups? Yes 08/10/2023 How often do you attend meet ings of the clubs or organizations you belong to? 1 to 4 times per year 08/10/2023 Are you , , di vorced, , never , or living with a partner? 08/10/2023 AUDIT-C Answer Date Recorded Q1: How often do you have a drink containing alcohol? Never 08/10/2023 Q2: How many drinks containi ng alcohol do you have on a typical day when you are drinking? Patient does not drink Q3: How often do you have si x or more drinks on one occasion? Never 08/10/2023 Overall Financial Resource Strain (CARDIA) Answe r Date Recorded How hard is it for you to pa y for the very basics like food, housing, medical care, and heating? Not hard at all 08/10/2023 [facility] Occup[facility] ional [facility] - Occupational Stress Questionnaire Answer Date Recorded Do you feel stress - tense, restless, nervous, or anxious, or unable to sleep at night because your mind is troubled all the time - these days? Not at all 08/10/2023 Exercise Vital Sign Answer Date Recorde d On average, how many days pe r week do you engage in moderate to strenuous exercise (like a brisk walk)? 2 days 08/10/2023 On average, how many minutes do you engage in exercise at this level? 10 min 08/10/2023 Hunger Vital Sign Answer Date Recorded Within the past 12 months, y ou worried that your food would run out before you got the money to buy more. Never true 08/10/19 24 Within the past 12 months, t he food you bought just didn't last and you didn't have money to get more. Never true 08/10/2023 PRAPARE - Transportation Answer Date Re corded In the past 12 months, has l ack of transportation kept you from medical appointments or from getting medications? No 07/20 In the past 12 months, has l ack of transportation kept you from meetings, work, or from getting things needed for daily living? No 08/10/2023 Housing Stability Vital Sign Answer Zelalem e Recorded In the last 12 months, was t here a time when you were not able to pay the mortgage or rent on time? No 08/10/2023 In the last 12 months, how many places have you lived? 1 08/10/2023 In the last 12 months, was t here a time when you did not have a steady place to sleep or slept in a chcf (including now)? No 08/10/2023 Comments No Sex and Gender Information Value Date Recorded Sex Assigned at Not on file Legal Sex Female 8:44 PM CDT Gender Identity Not on file Sexual Orientation Not on file Last Filed Vital Signs Vital Sign Reading Time Taken Comments Blood Pressure 120/58 06/16/2024 10:43 AM CLERK CARRIER Pulse 58 06/16/2024 10:43 AM CLERK CARRIER Temperature 36.1 C (97 F) 06/16/2024 10:43 AM CLERK CARRIER Respiratory Rate 16 06/16/2024 10:4 3 AM CLERK CARRIER Oxygen Saturation 89% 06/16/2024 10: 43 AM CLERK CARRIER Inhaled Oxygen Concentration - - Weight 55.7 kg (122 lb 12.8 oz) 025 10:43 AM CLERK CARRIER Height 152.4 cm (5') 06/16/2024 10:43 AM CLERK CARRIER Body Mass Index 23.98 06/16/2024 10:43 AM CLERK CARRIER Plan of Treatment Upcoming Encounters Date Type Department Care Team (Late st Contact Info) Description 12/23/2024 11:00 AM CDT Office Visit [facility] - Neurology [facility] [address] [place] [address] Scotty Orozco MD [address] [place] [address] Health Maintenance Due Date Last Done Comments Hepatitis C Virus (HCV) Screening 1940 Respiratory Syncytial Virus (RSV) Immunization (Adult) (1 - 1-dose 75+ series) 2014 Zoster Immunization (3 of 3) 02/28/2021 01/03/2021, 01/06/2013 SARS-COV-2 Immunization ( season) 2024 03/12/2024, 02/15/2023, 03/09/2022, Additional history exists DEXA Bone Density 03/21/2026 03/21/2024, , 12/09/2020 Pneumococcal Immunization (50+ years) Completed 11/12/2019, 02/13/2018 Pneumococcal Immunization Combined Discontinued 11/12/2019, 02/13/2018 DTaP/Tdap/Td Immunization Discontinued 12/08/2020 TdaP Immunization Completed 12/08/2020 Influenza Immunization Completed , 03/07/2024, 03/08/2023, Additional history exists Hepatitis B Immunization Aged Out No longer eligible based on patient's age to complete this topic Meningococcal Immunization (ACWY) Aged Out No longer eligible based on patient's age to complete this topic Rotavirus Immunization Aged Out No lo nger eligible based on patient's age to complete this topic Insurance MEDICARE C [facility] Advance Directives * Full Code (Latest Code Status on File) Date Activated Date Inactivated Comments 06/19/2023 8:10 AM Care Teams Nurse Practitioner Relationship Specialty Start Date End Date Anthony Suero MD [address] [place] [address] PCP - General Internal Medicine 06/11/23 Scotty Orozco MD [address] [place] [address] Consulting Physician Neurology 08/14/23
--- OUTSIDE RECORDS SUMMARY | 2024-07-12 13:55 | XMS_ITS | Continuity of Care Document ---
Author Organization [facility] Address [address] [place] [address] Phone Care Team Providers Care Rebar Bender Name Role Phone Boom Hernandez MD Unavailable Unavailable Advance Directives Directive Yes / No Effective Date File Name No Information Encounters Encounter Description Practice Location Reason(s) For Visit Diagnoses Date Provider Providers Copied on Encounter [facility], [address], [place], [place], [id number], [place] tel:[phone] [address]rin[address] Rosemary [place] No Information 1 David Nur. [address] [facility], [facility], [place], [place], [id number], [place]. tel:[phone] Family History Family Member Type Diagnosis Age At Onset No Information Payers Payer name Insurance type Covered green party ID Authoriza tion(s) No Information Social History Type Description Quantity Date Captured Comments Sex Female Smoking Status No Information Chief Complaint And Reason For Visit No Information Reason For Referral Reason For Referral No Information History Of Present Illness Encounter Date Complaint History Of Prese nt Illness No Information Functional Status Date Functional Assessmen t No Information Instructions Date Instruction Additional Infor mation No Information Assessments Type Assessment Date No Information Patient Care Teams Name Effective Dates (start - stop) Status Members No Information
--- OUTSIDE RECORDS SUMMARY | 2024-07-12 13:58 | XMS_ITS | Continuity of Care Document ---
Author Organization [facility] Address [address] [place] [address] Phone Care Team Providers Care Product Evangelist Name Role Phone Boom Hernandez MD Unavailable Unavailable Advance Directives Directive Yes / No Effective Date File Name No Information Encounters Encounter Description Practice Location Reason(s) For Visit Diagnoses Date Provider Providers Copied on Encounter [facility], [address], [place], [place], [id number], [place] tel:[phone] [address] Srinivas Rosemary [place] No Information 1 David Nur. [address] [facility], [facility], [place], [place], [address], [place]. tel:[phone] Family History Family Member Type Diagnosis Age [...]
[2024-07-12 14:00] VITALS: BP 99/45; PULSE 61; RESP 20; TEMP 36.2; O2SAT 100
[2024-07-12 14:30] LABS: EDUAAPPEAR Cloudy; EDUABILI Negative (Negative); EDUABLOOD 2+ (Negative); EDUACOLOR1 Yellow; EDUAGLUCOSE Negative (Negative); EDUAKETONE Negative (Negative); EDUALEUKO 3+ (Negative); EDUANITRATE Positive (Negative); EDUAPROTEIN 1+ (Negative); EDUAUROBILI 0.2
--- NOTE | 2024-07-12 15:19 | ED_ITS ---
HPI - General Adult General Chief complaint: Urogenital-Female Stated complaint: uti Source: patient Mode of arrival: ambulatory Limitations: no limitations History of Present Illness HPI narrative: Patient brought in by daughter with reports of urinary symptoms. Daughter indicates grandson went to check on patient and she had urinated in her bed. Daughter indicates her mother has had darker appearance to her urine and has had urinary frequency. No fever, abdominal pain, flank pain, nausea or vomiting. Daughter states that pt has been seen by neurology and is being assessed for Parksinson's. Over the past few days, pt has seemed more confused. Pt has family members that check on her daily as she has wanted to continue to live independently. Related Data Home Medications ?Medication ?Instructions ?Recorded ?Confirmed ?Last Taken ?Type aspirin 81 mg tablet,delayed 81 mg PO DAILY 05/28/19 05/28/19 Unknown History release (Adult Aspirin Regimen) metoprolol succinate 50 mg capsule 50 mg PO DAILY 05/28/19 05/28/19 Unknown History sprinkle, ext. release 24 hr nitroglycerin 0.4 mg sublingual 0.4 mg sublingual Q5M PRN 05/28/19 05/28/19 Unknown History tablet meclizine 12.5 mg tablet 12.5 mg PO BID PRN 06/30/19 Unknown History alendronate 70 mg tablet mg PO 07/12/24 Unknown History carbidopa 25 mg-levodopa 100 mg tablet 07/12/24 Unknown History tablet donepezil 5 mg tablet mg 07/12/24 Unknown History furosemide 20 mg tablet mg 07/12/24 Unknown History potassium chloride 10 mEq meq PO 07/12/24 Unknown History tablet,extended release Allergies Allergy/AdvReac Type Severity Reaction Status Date / Time clonidine Allergy Unknown Hallucinati Verified 07/12/24 14:13 ng Review of Systems Review of Systems: CONSTITUTIONAL: Denies fever, chills, or sweats. EYES: Denies visual changes, redness, or discharge. ENT: Denies rhinorrhea, congestion, sore throat, or otalgia. CARDIOVASCULAR: Denies chest pain, palpitations, or edema. RESPIRATORY: Denies cough or dyspnea. GASTROINTESTINAL: Denies abdominal pain, nausea, vomiting, or diarrhea. GENITOURINARY: Reports darkened appearance of the urine, urinary frequency SKIN: Denies rash or itching. MUSCULOSKELETAL: Denies back pain, joint pain, or myalgia. NEUROLOGIC: Reports slight confusion over the past few days. Denies headache, numbness, dizziness, or weakness. PSYCHIATRIC: Denies anxiety or depression. [facility] Past Medical History Medical History SVT (supraventricular tachycardia) Surgical History Surgical History History of appendectomy History of bladder suspension procedure Hx of tonsillectomy H/O: hysterectomy Family History Family History Father Cerebrovascular accident Sibling Family history of cardiovascular disease Social History Social History Smoking status: Never smoker Second hand tobacco smoke exposure: No Alcohol intake: never Exam Narrative: GENERAL: Well-appearing, well-nourished, and in no acute distress. HEAD: Normocephalic, atraumatic. EYES: PERRLA and EOMI. ENT: Nares clear, no rhinorrhea or epistaxis. Mucous membranes moist. Oropharynx without tonsillar hypertrophy exudate or other lesions. Bilateral TMs pearly staples nonbulging NECK: Supple. No adenopathy or masses. No carotid bruits or JVD CHEST: Clear to auscultation. No respiratory distress. No wheezes rales or rhonchi HEART: Regular rate and rhythm. No murmur heard. Normal peripheral pulses. ABDOMEN: Soft, nondistended, normal active bowel sounds. Mild suprapubic tenderness without rebound or guarding. EXTREMITIES: Normal range of motion. No edema. SKIN: Warm, dry, no rash. NEURO: No focal deficits. Alert and oriented x3. PSYCH: Normal mood and affect. Course Course Emergency Course: This is an 84-year-old female who presented for evaluation of urinary symptoms. Her urine today's nitrite positive. Will send urine for culture. Patient is actually oriented x3 and would like to be discharged home. Daughter is c omfortable with that plan. Multiple family members call her daily and she has daily visit from family. A family member will be able to stay with her overnight. Will dc with cephalexin. She was advised to increase hydration and go to the ER if she has worsening symptoms. Pt and daughter both in agreement with plan of care. Level of Care: Express Care Visit Vital Signs Vital signs: Vital Signs Temperature 36.2 C L 07/12/24 14:00 Pulse Rate 61 07/12/24 14:00 Respiratory Rate 20 07/12/24 14:00 Blood Pressure 99/45 L 07/12/24 14:00 Pulse Oximetry 100 07/12/24 14:00 Oxygen Delivery Room Air 07/12/24 14:00 Temperature 36.2 C L 07/12/24 14:00 Pulse Rate 61 07/12/24 14:00 Respiratory Rate 20 07/12/24 14:00 Blood Pressure 99/45 L 07/12/24 14:00 Pulse Oximetry 100 07/12/24 14:00 Oxygen Delivery Room Air 07/12/24 14:00 Medical Decision Making Vital Signs Vital Signs: Vital Signs Temperature 36.2 C L 07/12/24 14:00 Pulse Rate 61 07/12/24 14:00 Respiratory Rate 20 07/12/24 14:00 Blood Pressure 99/45 L 07/12/24 14:00 Pulse Oximetry 100 07/12/24 14:00 Oxygen Delivery Room Air 07/12/24 14:00 Temperature 36.2 C L 07/12/24 14:00 Pulse Rate 61 07/12/24 14:00 Respiratory Rate 20 07/12/24 14:00 Blood Pressure 99/45 L 07/12/24 14:00 Pulse Oximetry 100 07/12/24 14:00 Oxygen Delivery Room Air 07/12/24 14:00 Lab Data Labs: Lab Results 07/12/24 Range/Units 14:20 POC Urine Color Yellow POC Urine Clarity Cloudy POC Urine pH 6.0 POC Ur Specif Bayard 1.020 POC Urine Protein 1+ (Negative) POC Ur Glucose (UA) Negative (Negative) POC Urine Ketones Negative (Negative) POC Urine Blood 2+ (Negative) POC Urine Nitrite Positive (Negative) POC Urine Bilirubin Negative (Negative) POC Urine Urobilinogen 0.2 POC U Leukocyte Esteras 3+ (Negative) Discharge Plan Discharge Clinical Impression: UTI (urinary tract infection) Patient Disposition: Home, Self-Care Condition: Stable Instructions: Antibiotic Form, Urinary Tract Infection in Older Adults (ED) Patient Language: Yoruba Prescriptions: New cephalexin 500 mg capsule 500 mg PO Q12H Qty: 14 0RF No Action donepezil 5 mg tablet alendronate 70 mg tablet PO potassium chloride 10 mEq tablet extended release PO furosemide 20 mg tablet carbidopa-levodopa 25-100 mg tablet meclizine 12.5 mg tablet 12.5 mg PO BID PRN metoprolol succinate 50 mg capsule,sprinkle,ER 24hr 50 mg PO DAILY aspirin [Adult Aspirin Regimen] 81 mg tablet,delayed release (DR/EC) 81 mg PO DAILY nitroglycerin 0.4 mg tablet, sublingual 0.4 mg SUBLINGUAL Q5M PRN amlodipine 10 mg tablet See Rx Instructions .ROUTE .COMPLEX Qty: 90 1RF Dose Instruction: TAKE 1 TABLET BY MOUTH DAILY Rx Instructions: TAKE 1 TABLET BY MOUTH DAILY losartan 100 mg tablet 100 mg PO DAILY Qty: 90 1RF Follow-up/Referrals: Harms,Anthony Yee M.D. [Primary Care Provider] - Time of Disposition: 15:18
== END 2024-07-12 15:23 | disposition home or self-care (01) ==
PROVIDERS: Emergency Provider Nurse Practitioner; PCP Family Medicine
DX: N39.0 Urinary tract infection, site not specified (principal); B96.20 Unspecified Escherichia coli [E. coli] as the cause of diseases classified elsewhere; Z79.82 Long term (current) use of aspirin
CPT/HCPCS: 81003; 87086; 87186; 99213; G0463

== ENCOUNTER 2024-08-15 13:33 | Emergency (ER) | payer MEDICARE, SELFPAY ==
--- NOTE | ~2024-08-15 | XR_ITS ---
EXAMINATION: XR shoulder LT min 2V, XR humerus LT DATE: 08/15/2024 14:24 INDICATION: Generalized left upper arm and shoulder pain post injury with palpable pop TECHNIQUE: 1. AP internally and externally rotated, AP oblique externally rotated and transscapular Y views of t he left shoulder were obtained. 2. AP and lateral views of the left humerus were obtained. COMPARISON: None FINDINGS: Normal alignment. No fracture.Moderate left glenohumeral and acromioclavicular osteoarthritis. Mild osteoarthritis at the left elbow. Multiple small round dystrophic calcifications versus tiny phleboli ths project over the subcutaneous tissues along the left upper arm. Soft tissues are otherwise unrema rkable. Visualized portion of the left lung are clear. 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 No acute osseous a bnormality. Reviewed, dictated and finalized at location B. IMPRESSION: Polyarticular osteoarthritis, moderate at the left shoulder and mild at the elb ow. No acute osseous abnormality.
[2024-08-15 13:37] VITALS: BP 100/54; PULSE 67; RESP 20; TEMP 36; O2SAT 100
--- OUTSIDE RECORDS SUMMARY | 2024-08-15 13:42 | XMS_ITS | Continuity of Care Document ---
Author Organization [facility] Address [address] [place] [address] Phone Care Team Providers Care Embedded Software Development Engineer Name Role Phone Boom Hernandez MD Unavailable Unavailable Advance Directives Directive Yes / No Effective Date File Name No Information Encounters Encounter Description Practice Location Reason(s) For Visit Diagnoses Date Provider Providers Copied on Encounter [facility], [address], [place], [place], [id number], [place] tel:[phone] SEC Srinivas Rosemary York No Information 1 David Nur. [address] [facility], [facility], [place], [place], [address], [place]. tel:[phone] Family History Family Member Type Diagnosis Age At Onset No Information Payers Payer name Insurance type Covered alliance party ID Authoriza tion(s) No Information Social [...]
--- OUTSIDE RECORDS SUMMARY | 2024-08-15 13:42 | XMS_ITS | Clinical Summary ---
Author Organization [facility] Address [address] [place] [address] Care Team Providers Care Container Crane Operator Name Role Phone Anthony Suero MD Primary Care Provider [phone] Allergies Active Allergy Reactions Criticality Noted Date [...] Active Additional Information Patient not taking.Reported on 07/17/2024 polyethylene glycol (MIRALAX) 17 gram packetIndicatio ns:constipation Take 1 packet (17 g total) by mouth daily as needed for constipation Active Additional Information Patient not taking.Reported on 07/17/2024 omeprazole (PriLOSEC) 20 mg capsule Take 1 capsule (20 mg total) by mouth daily Active diphenoxylate-a tropine (LOMOTIL) 2.5-0.025 mg per [...] AFTER TAKING 4 tablet 11 024 Active losartan (COZAAR) 100 mg tabletIndicatio ns:Essential hypertension TAKE 1 TABLET(100 MG) BY MOUTH DAILY 90 tablet 1 025 Active metoprolol XL (TOPROL-XL) 50 mg extended release tabletIndicatio ns:Paroxysmal SVT (supraventricul ar tachycardia) TAKE 1 TABLET(50 MG) BY MOUTH DAILY 90 tablet 025 Active cephalexin (KEFLEX) 500 mg capsule Take 1 capsule (500 mg total) by mouth every 12 (twelve) hours 025 Active amLODIPine (NORVASC) 5 mg tabletIndicatio ns:Essential hypertension TAKE 1 TABLET BY MOUTH DAILY 90 tablet 025 Active losartan (COZAAR) 50 mg tabletIndicatio ns:Essential hypertension TAKE 1 TABLET(50 MG) BY MOUTH DAILY 90 tablet 025 Active donepeziL (ARICEPT) 5 mg tablet Take 1 tablet (5 mg total) by mouth nightly 90 tablet 1 025 Active donepeziL (ARICEPT) 5 mg tablet Take 1 tablet (5 mg total) by mouth nightly 024 2024 Discontinued(R eorder) amLODIPine (NORVASC) 10 mg tabletIndicatio ns:Essential hypertension TAKE 1 TABLET(10 MG) BY MOUTH DAILY 90 tablet 025 2024 Discontinued(R michael) losartan (COZAAR) 50 mg tabletIndicatio ns:Essential hypertension Take 1 tablet (50 mg total) by mouth daily 30 tablet 1 025 2024 Discontinued amLODIPine (NORVASC) 5 mg tabletIndicatio ns:hypertension Take 1 tablet (5 mg total) by mouth daily TAKE 1 TABLET(10 MG) BY MOUTH DAILY 30 tablet 1 025 2024 Discontinued Hospital, Clinic, or Other Facility Administered Medication Ordered Dose Route Frequency Start Date End Date Status cyanocobalamin (Vitamin B-12) injection 1,000 mcgIndications:Vitamin B12 deficiency 1000 mcg IM Every 7 days 09/14/2023 Active Active Problems Problem Noted Date Diagnosed Date Vitamin B12 deficiency 07/30/2024 Assessment & Plan (07/30/2024 1:14 PM CDT): Currently on oral replacement. Will check vitamin B12 level and plan accordingly. Chronic hip pain, bilateral 07/30/2024 Assessment & Plan (07/30/2024 1:17 PM CDT): Returning to [facility] for exercise which has provided improvement in the past. Will monitor response. Safety reviewed. Pressure injury of right buttock, stage 1 2024 Assessment & Plan (07/30/2024 1:14 PM CDT): No open areas. Reviewed position changes, soft surfaces. Get up and get moving as much as possible. Continue monitoring. Assessment & Plan (07/17/2024 2:56 PM BDR): Discussed position changes and off setting pressure with pillow under hip when sleeping. Advised to monitor and keep eye on to make sure it does not open. Will continue to monitor. Impaired hydration 07/17/2024 Assessment & Plan (07/17/2024 2:56 PM BDR): Discussed importance of drinking at least 3-4 water bottles (16 oz each) daily to ensure proper hydration but not causing fluid overload. BMI 25.0-25.9,adult 07/17/2024 Assessment & Plan (07/17/2024 2:57 PM BDR): Weight appropriate for patient. Parkinsonism, unspecified Parkinsonism type 01/2024 Assessment & Plan (07/30/2024 1:16 PM CDT): Following with Neurology. Encouraged to continue moving. Assessment & Plan (04/28/2024 4:22 PM BDR): Continue f/u with neurology and will montior respnose. WIll continue on sinemet. Closed compression fracture of L4 vertebra 10/17 Closed compression fracture of L3 vertebra 10/17 Assessment & Plan (04/28/2024 4:22 PM BDR): Sig pain relief s/p vertebroplasty and will continue to follow response. Closed compression fracture of L2 vertebra 10/17 Skin breakdown 06/13/2023 Assessment & Plan (06/13/2023 2:28 PM BDR): Continue topical dressing and will follow with home health. Stay off bottom as much as possible. When sitting sit on soft cushions. Hospital discharge follow-up 06/13/2023 Assessment & Plan (06/13/2023 2:29 PM BDR): IVerona NP have personally reviewed pertinent inpatient and/or ED records, including discharge medications and [employer] if applicable. This patient's discharge medication list has been reviewed and reconciled with her outpatient medication list and has also been reviewed with patient and/or caregiver. I have noted any changes. Mitral regurgitation 05/19/2023 Assessment & Plan (05/24/2023 11:56 AM BDR): Last TTE 04/2023 with no WMAs, EF 62%, diastolic dysfunction present, mild LAE, mod pHTN based on RV sys pressure (~50mmHg), mild to mod TR, dilated IVC with poor inspiratory collapse c/w elevated R atrial pressures, mod-severe MV regurg, - cautious use of MIVFs - per last cards note 04/2023, plan for IVIS outpatient Giant cell arteritis 05/18/2023 Overview (06/14/2023): - Initial patient presentation [...] mg daily q7 days Assessment & Plan (07/17/2024 3:25 PM BDR): Pt has completed her steroid taper. She feels her vision is stable. Following closely with rheumatology and will be transitioning care to family medicine HVF 24-2 is unreliable, all other testing is stable. Patient is able to complete ADLs but does have a difficult time with things on her left side of the world. Overall condition is stable. Pt wishes to follow with local eye doctor. If she needs to follow with us we will see her in 6 months HVF 24-2 size 5 stimulus. Assessment & Plan (04/28/2024 4:20 PM BDR): Continue f/u with Dr. Mackenzie. Reduced prednisone [...] OU Assessment & Plan (07/27/2023 4:40 PM BDR): Despite the non-diagnostic temporal artery biopsy the [...] RNFL Assessment & Plan (06/17/2023 4:17 PM BDR): Seeing Rheumatology today to manage steroids. Exam [...] RNFL/GCC) Assessment & Plan (06/13/2023 2:29 PM BDR): Vision improving. She has follow-up with specialist. Will continue with prednisone. Assessment & Plan (05/25/2023 11:38 AM BDR): Pt reports vision blurriness for at least [...] 05/18/2023 Assessment & Plan (05/26/2023 9:47 AM BDR): -Ophtho exam 05/23 showing improvement in vision [...] 08/08/2021 Assessment & Plan (06/13/2023 2:27 PM BDR): Continue with topical antifungal on hand. Also recommend soaking with warm Epsom salt soak prior to applying medication. Will monitor response. Assessment & Plan (12/15/2021 9:56 AM CDT): Using topical OTC antifungal with mild improvement. Discussed need to continue treatment and monitoring. Assessment & Plan (08/08/2021 1:00 PM CDT): Discussed topical treatment options with patient and her son. Recommended avoiding nail Slovenian during treatment. May need to use coupon from drug [employer] website for medication. Patient declined referral to podiatry. Osteoporosis without current pathological fractu re 01/03/2021 Assessment & Plan (07/30/2024 1:15 PM CDT): Have discussed with family, PCP, light bulb tester regarding treatment options. Reviewed with son today as well. They will follow-up next month with a light bulb tester to further discuss. Assessment & Plan (04/28/2024 4:21 PM BDR): See discussion as above. Patinet and family given information on Forteo and Evenity and discussion fo alternater mechanisms of action and also interaction with comorbiditeis. Reviewed fall prevention and patient is ambulating with assistance of a walker and rollator. Assessment & Plan (05/19/2023 1:14 AM BDR): - c/w home vit D. On calcium [...] provided Essential hypertension 05/12/2019 Assessment & Plan (07/30/2024 1:14 PM CDT): Stable. Would continue amlodipine 5 mg and losartan 50 mg daily. Continue monitoring blood pressure at home. Assessment & Plan (07/17/2024 2:54 PM BDR): Will trial decreasing Losartan to 50 mg and Amlodipine to 5 mg along with holding Lasix and using PRN. Will monitor blood pressure for any changes. Assessment & Plan (04/28/2024 4:23 PM BDR): Stable on lsoartan and metoprolol XL. No sig orthostasis. Cnotinues on amlodipine. Assessment & Plan (01/10/2024 2:20 PM CDT): Blood pressure is well controlled, continue present management. Assessment & Plan (05/24/2023 11:50 AM BDR): - BP meds restarted, initially held for [...] Will continue to monitor. Next OV with seat scooper machine 02/08/21. Assessment & Plan (02/10/2020 10:24 AM CDT): Patient's blood pressure appears to be under adequate control. If additional treatment is required consideration to chlorthalidone 25 mg daily could be considered. Assessment & Plan (05/12/2019 5:28 AM BDR): Holding home losartan and amlodipine Patient was started on metoprolol. Paroxysmal SVT (supraventricular tachycardia) Assessment & Plan (04/28/2024 4:21 PM BDR): Continues on metoprolol XL and will follow response. Assessment & Plan (05/19/2023 1:06 AM BDR): Hx of this. No episodes in years. [...] regimen. Assessment & Plan (05/12/2019 5:35 AM BDR): Resolved with adenosine. The currently in sinus rhythm. Will continue with metoprolol. Non-STEMI (non-ST elevated myocardial infarction ) 05/12/2019 Assessment & Plan (05/12/2019 5:28 AM BDR): Patient currently denies any chest pain. Denies [...] 05/25/2023 Assessment & Plan (05/24/2023 12:07 PM BDR): UTI growing 100k E coli. Pt denies dysuria, but can get confused. - Afebrile, WBC nml, at baseline mentation at this time - Ceftriaxone 1g q24 (05/21-05/25) Vertigo 02/10/2020 02/10/2020 Encounters Date Type Department Care Team Description 08/15/2024 Nurse Triage [facility] [address] [phone] Anthony Suero MD 08/04/2024 Results Follow-Up [facility] [address] [phone] Verona Garcia NP Hyponatremia (Primary Dx) 07/30/2024 11:05 AM CDT Lab [facility] [address] [place] [phone] Vitamin B12 deficiency; Essential hypertension 07/30/2024 10:30 AM CDT Office Visit [facility] [address] [phone] Verona Garcia NP Essential hypertension (Primary Dx); Vitamin B12 deficiency; Pressure injury of right buttock, stage 1; Age-related osteoporosis without current pathological fracture; Parkinsonism, unspecified Parkinsonism type (HCC); Chronic hip pain, bilateral 07/29/2024 Nurse Triage [facility] [address] [phone] Anthony Suero MD 07/25/2024 Nurse Triage [facility] [address] [phone] Anthony Suero MD 07/17/2024 2:00 PM BDR Office Visit [facility] [address] [phone] Lindsay Cruz NP Essential hypertension (Primary Dx); Pressure injury of right buttock, stage 1; Impaired hydration; BMI 25.0-25.9,adult 07/17/2024 10:30 AM BDR Office Visit [facility] [address] [place] [address] [place] [address] Val Long MD Giant cell arteritis (HCC) (Primary Dx) 06/24/2024 11:00 AM BDR Office Visit [facility] at [address] [place] [phone] Cece Dumont NP Skin tear of forearm without complication, left, initial encounter (Primary Dx) 06/06/2024 2:30 PM BDR Office Visit [place] [facility] at [address] [place] [phone] Aquilino Hill MD Nonrheumatic mitral valve regurgitation (Primary Dx) from Last 3 Months Immunizations Immunization Administration Dates Next Due Influenza, Quadrivalent, Hig h Dose, Preservative Free, Intrr 02/18/2021 Influenza, Trivalent, High D ose, Split, Preservative Free, Intramuscular 02/07/2020,02/25/2019,01/28/2018,01/27,02/18/2017,02/28/2016,03/28/2014 ,02/10/2013 Influenza, Trivalent, IM (MDV) 8,03/09/2015,02/10/2013,05/20,04/04/2012 Influenza, Trivalent, Preser vative Free, Intramuscular 03/09/2015 [...] Vertigo Arthritis History of transfusion Supraventricular tachycardia Chest pain Giant cell arteritis (HCC) 05/18/2023 Osteoporosis Family History Medical History [...] more points, staff should administer the PHQ-9) 1 07/17/2024 PHQ-9 Answer Date Recorded PHQ-9 Total Score 4 10/23/2023 Personal Safety Answer Date Recorded Have you ever been in or are you currently in a harmful physical or emotional relationship or is someone making you feel afraid or unsafe? Denies 11/05/2023 Comments No Sex and Gender Information Value Date Recorded Sex Assigned at Not on file Legal Sex Female 2:17 AM BDR Gender Identity Not on file Sexual Orientation Not on file Obstetrics History Para Term AB IAB SAB Ectopic Multiple Livin g Live Births 4 4 4 Date Outcome GA Total Labor Labor/2nd/3rd Weight Sex Type Anes PTL Bertha A1 A5 Name Clin Term Term Term Term Last Filed Vital Signs Vital Sign Reading Time Taken Comments Blood Pressure 106/50 07/30/2024 10:10 AM CDT Pulse 61 07/30/2024 10:10 AM CDT Temperature 36.3 C (97.4 F) 07/30/2024 10:10 AM CDT Respiratory Rate 18 07/30/2024 10:10 AM CDT Oxygen Saturation 98% 07/30/2024 10:10 AM CDT Inhaled Oxygen Concentration - - Weight 55.3 kg (122 lb) 07/30/2024 10:10 AM CDT Height 149.9 cm (4' 11.02 ) 07/30/2024 10:10 AM CDT Body Mass Index 24.63 07/30/2024 10:10 AM CDT Plan of Treatment Health Maintenance Due Date Last Done Comments Hepatitis B Screening 1958 Zoster Vaccine (2 of 3) 03/03/2013 01/06/2013 Well Visit 65+ 01/09/2025 01/10/2024, 11/20, 12/15/2021, Additional history exists Depression Screening 07/17/2025 07/17/2024, 04/28/2024, 01/10/2024, Additional history exists Fall Risk Assessment 07/17/2025 07/17/2024, 04/28/2024, 01/10/2024, Additional history exists Osteoporosis Screening-Bone Density Scan 03/21/2026 03/21/2024, 04/25/2023, 04/25/2023, Additional history exists DTaP/Tdap/Td Vaccine (2 - Td or Tdap) 12/08/2030 12/08/2020 Pneumococcal vaccine 65+ Completed 11/12/2019, 01/20 Influenza Vaccine Completed 04/03/2024, , 03/03/2022, Additional history exists Medical Devices Implanted Type Area Clinical Laboratory Scientist Device Identifier Shelf Expiration Date Model / Serial / Lot [employer] Vertaplex Hv Autoplex Without Needle Delivery System Kit Bone [id number] - [id number] Implanted:Qty : 1 on 11/05/2023 by Harris Paez MD at [facility] Bone Cement N/A: Spine Lumbar [employer] 03/20/2025 [id number] / / [id number] Description:L2-L4 Procedures Procedure Name Priority Date/Time Associated Diagnosis Comments EGFR Routine 07/30/2024 11:02 AM CDT Essential hypertension BASIC METABOLIC PANEL Routine 07/30/2024 11:02 AM CDT Essential hypertension VITAMIN B12 Routine 07/30/2024 11:02 AM CDT Vitamin B12 deficiency MARROQUIN VISUAL FIELD - OU - BOTH EYES Routine 07/17/2024 10:30 AM BDR Giant cell arteritis (HCC) SCAN - LABS 07/12/2024 DEXA AXIAL SKELETON BONE DENSITY 1 OR MORE SITES Schedule Routine, Read Routine (OP Routine) 03/21/2024 12:26 PM CDT Age-related osteoporosis without current pathological fracture from Last 3 Months or Most Recently Relevant to Health Maintenance Results * eGFR (07/30/2024 11:02 AM CDT) eGFR 85 >=60 mL/min/1. 73 m2 Comment: Interpretive Data Reference Interval Normal >/= 90 mL/min/1.73m2 Mildly decreased* 60 - 89 mL/min/1.73m2 Mildly to moderately decreased 45 - 59 mL/min/1.73m2 Moderately to severely decreased 30 - 44 mL/min/1.73m2 Severely decreased 15 - 29 mL/min/1.73m2 Kidney Failure < 15 mL/min/1.73m2 *Relative to young adult level Estimated glomerular filtration rate is determined by the 2020 CKD-EPI equation recommended by the National Kidney Foundation (A Unifying Approach to GFR Estimation: Recommendations of the NKF-ASK Task Force on Reassessing the Inclusion of Race in Diagnosing Kidney Disease, JASN 2020). The CKD-EPI equation should not be used for patients with unstable renal function and has not been validated in children and those over 70. Current interpretive data was last reviewed 2021. Testing performed by: [facility], [address] [place] [address], [place]., [address] Blood 07/30/2024 11:0 2 AM CDT 07/30/2024 6:13 PM CDT us Verona Garcia NP LAB BLOOD ORDERABLES Final Result [facility] [address] [facility] Department [place] [address] * Vitamin B12 (07/30/2024 11:02 AM CDT) Pathologist [facility] Vitamin B12 987 230 - 1,250 pg/mL Comment:Testing performed by : [address], [address] Blood 07/30/2024 11:0 2 AM CDT 07/30/2024 6:07 PM CDT Verona Garcia DIRECTOR OF INVESTIGATIONS LAB BLOOD ORDERABLES Final Result [facility] WHITTEN (EFREN) 1 [facility] Department [place] [address] * (ABNORMAL) Basic metabolic panel (07/30/2024 11:02 AM CDT) Pathologist [facility] Sodium 130(L) 135 - 145 mmol/L Comment:Testing performed by : [address], [address] Potassium, pl 4.3 3.3 - 4.9 mmol/L [facility] (EFREN) Comment:Testing performed by : [address], [address] Chloride 96(L) 97 - 110 mmol/L [facility] (EFREN) Comment:Testing performed by : [address], [address] CO2 24 22 - 32 mmol/L [facility] (EFREN) Comment:Testing performed by : [address], [address] Anion gap 10 2 - 15 mmol/L [facility] (EFREN) Comment:Testing performed by : [address], [address] BUN 10 6 - 25 mg/dL [facility] (EFREN) Comment:Testing performed by : [address], [address] Creatinine 0.69 0.60 - 1.10 mg/dL [facility] (EFREN) Comment:Testing performed by : [address], [address] Glucose 84 70 - 199 mg/dL [facility] (EFREN) Comment: Interpretive Data Fasting glucose >/= 126 mg/dl is diagnostic for diabetes. Fasting is defined as no caloric intake for at least 8 hours. Fasting glucose between 100 mg/dl to 125 mg/dl is diagnostic of prediabetes. In a patient with classic symptoms of hyperglycemia or hyperglycemic crisis, a random glucose >/= 200 mg/dl is diagnostic for diabetes. In the absence of unequivocal hyperglycemia, results should be confirmed by repeat testing. The classification and Diagnosis of Diabetes Diabetes Care 2021; 46: S19-S40. Current interpretive data was last revised 2022. Testing performed by: [facility], [address] [place] [address]., [address] Calcium 9.2 8.5 - 10.3 mg/dL [facility] (FOMBELL) Comment:Testing performed by : [facility], [address] [place] [address]., [address] Blood 07/30/2024 11:0 2 AM CDT 07/30/2024 6:07 PM CDT Verona Garcia NP LAB BLOOD ORDERABLES Final Result [facility] WHITTEN (FOMBELL) 1 [facility] Department [place] [address] * Marroquin Visual Field - OU - Both Eyes (07/17/2024 10:30 AM BDR) Pathologist [facility] Pattern Deviation OS 7.37 CONTINUUM Pattern Deviation OD 5.62 CONTINUUM Mean Deviation OS -13.01 CONTINUUM Mean Deviation OD -27.57 CONTINUUM Anatomical Region Laterality Modality Head Visual Field Narrative 07/21/2024 8:30 AM BDR Right Eye Fixation was borderline. Reliability was poor. Mean Deviation was -27.57. Pattern Deviation was 5.62. Left Eye Fixation was borderline. Reliability was poor. Mean Deviation was -13.01. Pattern Deviation was 7.37. Notes False negatives OD 40%, false negatives and/A OS. Bilateral testing is very unreliable. Patient has a difficult time sitting in the scanner for that long us Val Long MD [facility] VISUAL FIELD F inal Result * SCAN - LABS (07/12/2024) us Provider Scanning Edited Result - Final * Dexa Axial Skeleton Bone Density 1 or 2 Site (03/21/2024 12:26 PM CDT) Anatomical Region Laterality Modality Body N/A Radiographic Martha ging Narrative 03/21/2024 4:28 PM CDT Patient Name: Bozena Howe Date of : 1940 Date of scan: 03/21/2024 Bone mineral density was performed on a HoloDorsaVI Discovery Densitometer. Based on machine cross-calibration and [...] by the International Society of Clinical Densitometry. [id number] Fracisco De Leon MD IMG DXA PROCEDURES Final Result from Last 3 Months or Most Recently Relevant to Health Maintenance Insurance [facility]IC[facility] ADVANTAGE [facility] Address: [facility] [address] [place] [address] [facility] MEDICARE ADVANTAGE [facility] MED[facility] Address: [address] [address] [place] [address] [employer] MEDICARE ADVANTAGE [facility] MEDIC[facility] Address: [address] [address] [place] [address] Advance Directives For more information, please contact: [phone] * Full Code (Latest Code Status on File) Date Activated Date Inactivated Comments 05/19/2023 2:01 AM 05/27/2023 7:22 PM * Full Code Date Activated Date Inactivated Comments 05/11/2019 8:20 PM 05/12/2019 7:47 PM Care Teams Container Crane Operator Relationship Specialty Start Date End Date [place] [address] PCP - General Family Medicine 11/12/19
--- OUTSIDE RECORDS SUMMARY | 2024-08-15 13:42 | XMS_ITS | Clinical Summary ---
Author Organization [facility] Address [address] [place] [address] Care Team Providers Care Sales Representatives Name Role Phone Unavailable Primary Care Provider Unavailabl e Source Comments [facility],non-owned Affiliates and Associated Physician Practices is amultiple site organization consisting of ambulatory clinics and hospital sitesin [place], [place], [place] and [place]. This disclosure is being madepursuant to the Care Everywhere program and may not contain all information available regarding this patient. Last updated 18.[facility] [employer] Allergies No known active allergies Medications * [...] Comments Blood Pressure 124/80 07/20/2017 2:57 PM EVENT LIGHTING SPECIALIST Pulse 66 07/20/2017 2:57 PM EVENT LIGHTING SPECIALIST Temperature 36.8 C (98.3 F) 07/20/2017 2:57 PM EVENT LIGHTING SPECIALIST Respiratory Rate - - Oxygen Saturation - - Inhaled Oxygen Concentration - - Weight 60.8 kg (134 lb) 07/20/2017 2:57 PM EVENT LIGHTING SPECIALIST Height 153.7 cm (5' 0.5 ) 07/20/2017 2:57 PM EVENT LIGHTING SPECIALIST Body Mass Index 25.74 07/20/2017 2:57 PM EVENT LIGHTING SPECIALIST Plan of Treatment Health Maintenance Due Date [...] complete this topic MENINGOCOCCAL (Group B) VACCINE SHARED DECISION-MAKING Aged Out No longer eligible based on patient's age to complete this topic MENINGOCOCCAL GROUPS A/C/Y/W VACCINE Aged Out No longer eligible based on patient's age to complete this topic
--- OUTSIDE RECORDS SUMMARY | 2024-08-15 13:42 | XMS_ITS | Clinical Summary ---
Author Organization [facility] Address [address] [place] [address] Phone Care Team Providers Care Linen Aide Name Role Phone Anthony Suero MD Primary Care Provider [phone] Scotty Orozco MD Unavailable [phone] Allergies Active Allergy Reactions Criticality Noted Date Comments Clonidine Hallucinations Medium 12/10/2019 Medications losartan potassium-hydr ochlorothiazid e (HYZAAR) 100-25 MG Tablet Take 1 Tab by mouth daily. Active amoxicillin-cl avulanate (AUGMENTIN) 875-125 MG Tablet 1 tablet by mouth twice daily with food. 10 Tab 9 Active Additional Information Patient not taking.Reported on 06/16/2024 Acetaminophen 325 MG Capsule Take 2 Tablets by mouth every 6 hours. as needed for pain 4 Active amLODIPine (NORVASC) 10 MG Tablet Take [...] 5 mg by mouth daily. 12.5mg daily 4 Active OMEPRAZOLE PO Take 20 mg by mouth daily. Take before breakfast Active alendronate (FOSAMAX) 70 MG Tablet Take 70 mg by mouth every 7 days. Take 1 tablet (70mg) by mouth every 7 days on an empty stomach Do not lie down or eat for 30 minutes after taking 4 Active furosemide (LASIX) 20 MG Tablet Take 20 mg by mouth daily. Active potassium chloride SA (KLORCON M) 10 MEQ Tablet Controlled ReleaseIndicat ions:Hypokalem ia Take 10 mEq by mouth daily. Take 1 tablet (10 meq) by mouth daily Indications: Low Amount of Potassium in the Blood 4 Active VITAMIN D PO Take by mouth. Ac tive donepezil (ARICEPT) 5 MG Tablet Take 1 Tablet by mouth nightly. 90 Tablet 1 4 Active cyanocobalamin (VITAMIN B-12) 1000 MCG/ML Solution 1,000 mcg by Intramuscular route once a week. 4 Active carbidopa-levo dopa (SINEMET) 25-100 MG Tablet Take 2 Tablets by mouth 3 times daily. 180 Tablet 3 5 Active Active Problems Problem Noted Date Diagnosed [...] and family. RTC 2 months or sooner, [facility] 10-2, OCT RNFL Encounters Date Type Department Care Team Description 07/24/2024 Telephone [facility] - [place] [address] [place] [address] Scotty rOozco MD 06/16/2024 11:00 AM AUTOMOBILE SERVICE WRITER [facility] [address] [place] [address] Scotty Orozco MD Parkinson's disease without dyskinesia [...] drink = 0.6 oz pur e alcohol) [facility] Utilities Answer Date Recorded In the past 12 months has e electric, gas, oil, or water [employer] threatened to shut off services in your [...] often do you attend chur ch or church services? Never 08/10/2023 Do you belong to any clubs o r organizations such as muslim groups, unions, fraternal or athletic groups, or [...] and heating? Not hard at all 08/10/2023 [facility] of Occupat ional Health - Occupational Stress [...] place to sleep or slept in a senior care (including now)? No 08/10/2023 Comments No Sex and Gender Information Value Date Recorded Sex Assigned at Not on file Legal Sex Female 8:44 PM CDT Gender Identity Not on file Sexual Orientation Not on file Last Filed Vital Signs Vital Sign Reading Time Taken Comments Blood Pressure 120/58 06/16/2024 10:43 AM AUTOMOBILE SERVICE WRITER Pulse 58 06/16/2024 10:43 AM AUTOMOBILE SERVICE WRITER Temperature 36.1 C (97 F) 06/16/2024 10:43 AM AUTOMOBILE SERVICE WRITER Respiratory Rate 16 06/16/2024 10:4 3 AM AUTOMOBILE SERVICE WRITER Oxygen Saturation 89% 06/16/2024 10: 43 AM AUTOMOBILE SERVICE WRITER Inhaled Oxygen Concentration - - Weight 55.7 kg (122 lb 12.8 oz) 025 10:43 AM AUTOMOBILE SERVICE WRITER Height 152.4 cm (5') 06/16/2024 10:43 AM AUTOMOBILE SERVICE WRITER Body Mass Index 23.98 06/16/2024 10:43 AM AUTOMOBILE SERVICE WRITER Plan of Treatment Upcoming Encounters Date Type Department Care Team (Late st Contact Info) Description 12/23/2024 11:00 AM CDT Office Visit [facility] - [facility] [address] [place] [address] Scotty Orozco MD [address] [place] [address] Health Maintenance Due Date Last Done Comments [...] to complete this topic Insurance [facility]IC[facility] Advance Directives * Full Code (Latest Code Status on File) Date Activated Date Inactivated Comments 06/19/2023 8:10 AM Care Teams Linen Aide Relationship Specialty Start Date End Date Anthony Suero MD [address] [place] [address] PCP - General Internal Medicine 06/11/23 Scotty Orozco MD [address] [place] [address] Consulting Physician Neurology 08/14/23
--- OUTSIDE RECORDS SUMMARY | 2024-08-15 13:42 | XMS_ITS | Encounter Summary ---
Author Organization [facility] Address [address] [place] [address] Care Team Providers Care Back Grinder Name Role Phone Anthony Suero MD Primary Care Provider [phone] Reason for Visit * Reason Onset Date Comments Shoulder Pain 08/15/2024 Encounter Details Date Type Department Care Team (Late st Contact Info) Description 08/15/2024 Nurse Triage [facility] [address] [place] [address] Anthony Suero MD [address] [place] [address] Social History Tobacco Use Types Packs/Day Years Used Date Smoking Tobacco: Never Cigarettes Smokeless Tobacco: Never Alcohol Use Standard Drinks/Week Comments Never 0 [...] on file Legal Sex Female 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 Duration: Started today. Details: She was getting off of her bed this morning, but her hands behind her to push up off of the bed and she heard a pop in the left shoulder followed by severe pain. Son Tanner, HIPAA, and Zuly were together on the phone. She states she can barely move her arm, pain 10/10 with movement, when Tanner pressed on the upper left arm where it meets the shoulder she winced, she said it hurts all the way down to the left elbow., constant, worse with movement Tanner cannot tell if her arm is swollen as she would not allow him to take her jacket off, hurts too much to remove her jacket. Denies sob, chest pain, sweating, jaw pain, collarbone pain, recent illness of fever, falls. Nurse Triage Protocol Disposition: See today in office. No availability at the office, recommended UC since she might need imaging, so son Tanner said he will take her to [facility] now. Nursing care advice also provided. Encouraged to call back if there are further questions or concerns. Encouraged to call back if symptoms persist or worsen. Reason for Disposition Followed an injury to shoulder SEVERE pain (e.g., excruciating) Protocols used: Shoulder Aqwh-Stivt-SM, Shoulder Jbecbu-Aighn-WW * Telephone Encounter - Shena Dickinson RN - 08/15/2024 12:54 PM CDT Regarding: severe shoulder pain ----- Message from Consuelo Curtis sent at 08/15/2024 12:54 PM CDT ----- Symptom Based Call Chief Complaint(s): severe shoulder pain Duration: started today What type of symptom(s) is the patient experiencing? Red Flag. Is the patient concerned they are experiencing a medical emergency requiring an ambulance? No Additional Comments: No fall or known injury Does message need to be routed? Yes-Action Needed documented in this encounter Plan of Treatment Not on file documented as of this encounter Visit Diagnoses Not on filedocumented in this encounter Care Teams Back Grinder Relationship Specialty Start Date End Date Anthony Suero MD [address] [place] [address] PCP - General Family Medicine 11/12/19 documented as of this encounter
--- OUTSIDE RECORDS SUMMARY | 2024-08-15 13:42 | XMS_ITS | Referral Summary ---
Author Organization [facility] Address [address] [place] [address] Care Team Providers Care Partner Marketing Intern Name Role Phone Anthony Suero MD Primary Care Provider [phone] Encounters Date Type Department Care Team Description 08/15/2024 Nurse Triage [facility] [address] [phone] Anthony Suero MD 08/04/2024 Results Follow-Up [facility] [address] [phone] Verona Garcia NP Hyponatremia (Primary Dx) 07/30/2024 11:05 AM CDT Lab [facility] [address] [place] [phone] Vitamin B12 deficiency; Essential hypertension 07/30/2024 10:30 AM CDT Office Visit [facility] [address] [phone] Verona Garcia NP Essential hypertension (Primary Dx); Vitamin B12 deficiency; Pressure injury of right buttock, stage 1; Age-related osteoporosis without current pathological fracture; Parkinsonism, unspecified Parkinsonism type (HCC); Chronic hip pain, bilateral 07/29/2024 Nurse Triage [facility] [address] [address] Anthony Suero MD 07/25/2024 Nurse Triage [facility] [address] [phone] Anthony Suero MD 07/17/2024 2:00 PM PERSONNEL SECURITY ASSISTANT Office Visit [facility] [address] [phone] Lindsay Cruz NP Essential hypertension (Primary Dx); Pressure injury of right buttock, stage 1; Impaired hydration; BMI 25.0-25.9,adult 07/17/2024 10:30 AM PERSONNEL SECURITY ASSISTANT Office Visit [facility] [address] [place] [phone] Val Long MD Giant cell arteritis (HCC) (Primary Dx) 06/24/2024 11:00 AM PERSONNEL SECURITY ASSISTANT Office Visit [facility] at [address] [phone] Cece Dumont NP Skin tear of forearm without complication, left, initial encounter (Primary Dx) 06/06/2024 2:30 PM PERSONNEL SECURITY ASSISTANT Office Visit [facility] at [address] [place] [phone] Aquilino Hill MD Nonrheumatic mitral valve regurgitation (Primary Dx) from Last 3 Months Allergies Active Allergy [...] 30 MINUTES AFTER TAKING 4 tablet 11 Active losartan (COZAAR) 100 mg tabletIndicatio ns:Essential hypertension TAKE 1 TABLET(100 MG) BY MOUTH DAILY 90 tablet 1 Active metoprolol XL (TOPROL-XL) 50 mg extended release tabletIndicatio ns:Paroxysmal SVT (supraventricul ar tachycardia) TAKE 1 TABLET(50 MG) BY MOUTH DAILY 90 tablet Active cephalexin (KEFLEX) 500 mg capsule Take 1 capsule (500 mg total) by mouth every 12 (twelve) hours Active amLODIPine (NORVASC) 5 mg tabletIndicatio ns:Essential hypertension TAKE 1 TABLET BY MOUTH DAILY 90 tablet 02/27/2 025 Active losartan (COZAAR) 50 mg tabletIndicatio [...] MOUTH DAILY 90 tablet 025 2024 Discontinued(R eorder) losartan (COZAAR) 50 mg tabletIndicatio ns:Essential hypertension [...] Plan (07/30/2024 1:17 PM CDT): Returning to [facility] for exercise which has provided improvement in the past. Will monitor response. Safety reviewed. Pressure injury of right buttock, stage 1 2024 Assessment & Plan (07/30/2024 1:14 PM CDT): No open areas. Reviewed position changes, soft surfaces. Get up and get moving as much as possible. Continue monitoring. Assessment & Plan (07/17/2024 2:56 PM PERSONNEL SECURITY ASSISTANT): Discussed position changes and off setting pressure with pillow under hip when sleeping. Advised to monitor and keep eye on to make sure it does not open. Will continue to monitor. Impaired hydration 07/17/2024 Assessment & Plan (07/17/2024 2:56 PM PERSONNEL SECURITY ASSISTANT): Discussed importance of drinking at least 3-4 water bottles (16 oz each) daily to ensure proper hydration but not causing fluid overload. BMI 25.0-25.9,adult 07/17/2024 Assessment & Plan (07/17/2024 2:57 PM PERSONNEL SECURITY ASSISTANT): Weight appropriate for patient. Parkinsonism, unspecified Parkinsonism type 01/2024 Assessment & Plan (07/30/2024 1:16 PM CDT): Following with Neurology. Encouraged to continue moving. Assessment & Plan (04/28/2024 4:22 PM PERSONNEL SECURITY ASSISTANT): Continue f/u with neurology and will montior respnose. WIll continue on sinemet. Closed compression fracture of L4 vertebra 10/17 Closed compression fracture of L3 vertebra 10/17 Assessment & Plan (04/28/2024 4:22 PM PERSONNEL SECURITY ASSISTANT): Sig pain relief s/p vertebroplasty and will continue to follow response. Closed compression fracture of L2 vertebra 10/17 Skin breakdown 06/13/2023 Assessment & Plan (06/13/2023 2:28 PM PERSONNEL SECURITY ASSISTANT): Continue topical dressing and will follow with home health. Stay off bottom as much as possible. When sitting sit on soft cushions. Hospital discharge follow-up 06/13/2023 Assessment & Plan (06/13/2023 2:29 PM PERSONNEL SECURITY ASSISTANT): Verona Begum NP have personally reviewed pertinent inpatient and/or ED records, including discharge medications and [employer] if applicable. This patient's discharge medication list has been reviewed and reconciled with her outpatient medication list and has also been reviewed with patient and/or caregiver. I have noted any changes. Mitral regurgitation 05/19/2023 Assessment & Plan (05/24/2023 11:56 AM PERSONNEL SECURITY ASSISTANT): Last TTE 04/2023 with no WMAs, EF [...] days Assessment & Plan (07/17/2024 3:25 PM PERSONNEL SECURITY ASSISTANT): Pt has completed her steroid taper. She feels her vision is stable. Following closely with rheumatology and will be transitioning care to [facility] HVF 24-2 is unreliable, all other testing [...] stimulus. Assessment & Plan (04/28/2024 4:20 PM PERSONNEL SECURITY ASSISTANT): Continue f/u with Dr. Mackenzie. Reduced prednisone [...] OU Assessment & Plan (07/27/2023 4:40 PM PERSONNEL SECURITY ASSISTANT): Despite the non-diagnostic temporal artery biopsy the [...] RNFL Assessment & Plan (06/17/2023 4:17 PM PERSONNEL SECURITY ASSISTANT): Seeing Rheumatology today to manage steroids. Exam [...] RNFL/GCC) Assessment & Plan (06/13/2023 2:29 PM PERSONNEL SECURITY ASSISTANT): Vision improving. She has follow-up with specialist. Will continue with prednisone. Assessment & Plan (05/25/2023 11:38 AM PERSONNEL SECURITY ASSISTANT): Pt reports vision blurriness for at least [...] 05/18/2023 Assessment & Plan (05/26/2023 9:47 AM PERSONNEL SECURITY ASSISTANT): -Ophtho exam 05/23 showing improvement in vision [...] 08/08/2021 Assessment & Plan (06/13/2023 2:27 PM PERSONNEL SECURITY ASSISTANT): Continue with topical antifungal on hand. Also recommend soaking with warm Epsom salt soak prior to applying medication. Will monitor response. Assessment & Plan (12/15/2021 9:56 AM CDT): Using topical OTC antifungal with mild improvement. Discussed need to continue treatment and monitoring. Assessment & Plan (08/08/2021 1:00 PM CDT): Discussed topical treatment options with patient and her son. Recommended avoiding nail Syriac during treatment. May need to use coupon from [employer] website for medication. Patient declined referral to podiatry. Osteoporosis without current pathological fractu re 01/03/2021 Assessment & Plan (07/30/2024 1:15 PM CDT): Have discussed with family, PCP, pile driving setter regarding treatment options. Reviewed with son today as well. They will follow-up next month with a pile driving setter to further discuss. Assessment & Plan (04/28/2024 4:21 PM PERSONNEL SECURITY ASSISTANT): See discussion as above. Patinet and family given information on Forteo and Evenity and discussion fo alternater mechanisms of action and also interaction with comorbiditeis. Reviewed fall prevention and patient is ambulating with assistance of a walker and rollator. Assessment & Plan (05/19/2023 1:14 AM PERSONNEL SECURITY ASSISTANT): - c/w home vit D. On calcium [...] home. Assessment & Plan (07/17/2024 2:54 PM PERSONNEL SECURITY ASSISTANT): Will trial decreasing Losartan to 50 mg and Amlodipine to 5 mg along with holding Lasix and using PRN. Will monitor blood pressure for any changes. Assessment & Plan (04/28/2024 4:23 PM PERSONNEL SECURITY ASSISTANT): Stable on lsoartan and metoprolol XL. No sig orthostasis. Cnotinues on amlodipine. Assessment & Plan (01/10/2024 2:20 PM CDT): Blood pressure is well controlled, continue present management. Assessment & Plan (05/24/2023 11:50 AM PERSONNEL SECURITY ASSISTANT): - BP meds restarted, initially held for [...] Will continue to monitor. Next OV with atomic fuel assembler 02/08/21. Assessment & Plan (02/10/2020 10:24 AM CDT): Patient's blood pressure appears to be under adequate control. If additional treatment is required consideration to chlorthalidone 25 mg daily could be considered. Assessment & Plan (05/12/2019 5:28 AM PERSONNEL SECURITY ASSISTANT): Holding home losartan and amlodipine Patient was started on metoprolol. Paroxysmal SVT (supraventricular tachycardia) Assessment & Plan (04/28/2024 4:21 PM PERSONNEL SECURITY ASSISTANT): Continues on metoprolol XL and will follow response. Assessment & Plan (05/19/2023 1:06 AM PERSONNEL SECURITY ASSISTANT): Hx of this. No episodes in years. [...] regimen. Assessment & Plan (05/12/2019 5:35 AM PERSONNEL SECURITY ASSISTANT): Resolved with adenosine. The currently in sinus rhythm. Will continue with metoprolol. Non-STEMI (non-ST elevated myocardial infarction ) 05/12/2019 Assessment & Plan (05/12/2019 5:28 AM PERSONNEL SECURITY ASSISTANT): Patient currently denies any chest pain. Denies [...] 05/25/2023 Assessment & Plan (05/24/2023 12:07 PM PERSONNEL SECURITY ASSISTANT): UTI growing 100k E coli. Pt denies [...] on file Legal Sex Female 2:17 AM PERSONNEL SECURITY ASSISTANT Gender Identity Not on file Sexual Orientation [...] 07/30/2024 10:10 AM CDT Plan of Treatment Not on file Medical Devices Implanted Type Area Dry Charge Process Attendant Device Identifier Shelf Expiration Date Model / Serial / Lot MedSynergies Vertaplex Hv Autoplex Without Needle Delivery System Kit Bone [id number] - [id number] Implanted:Qty : 1 on 11/05/2023 by Harris Paez MD at [facility] Bone Cement N/A: Spine Lumbar [employer] 03/20/2025 [id number] / / [id number] Description:L2-L4 Procedures Procedure Name Priority Date/Time Associated Diagnosis Comments EGFR Routine 07/30/2024 11:02 AM CDT Essential hypertension BASIC METABOLIC PANEL Routine 07/30/2024 11:02 AM CDT Essential hypertension VITAMIN B12 Routine 07/30/2024 11:02 AM CDT Vitamin B12 deficiency MARROQUIN VISUAL FIELD - OU - BOTH EYES Routine 07/17/2024 10:30 AM PERSONNEL SECURITY ASSISTANT Giant cell arteritis (HCC) SCAN - LABS [...] was last reviewed 2021. Testing performed by: [facility], [address] [place] [address]., [address] Blood 07/30/2024 11:0 2 AM CDT 07/30/2024 6:13 PM CDT Verona Garcia VICE PRESIDENT INTEGRATED LAB BLOOD ORDERABLES Final Result Performing Organization Address [facility] de Phone Number NAILA WHITTEN (EFREN) [address] [place] [address] * Vitamin B12 (07/30/2024 11:02 AM CDT) Pathologist [facility] Vitamin B12 987 230 - 1,250 pg/mL Comment:Testing performed by : [address], [address] Blood 07/30/2024 11:0 2 AM CDT 07/30/2024 6:07 PM CDT Verona Garcia VICE PRESIDENT INTEGRATED LAB BLOOD ORDERABLES Final Result Performing Organization Address [facility] de Phone Number NAILA WHITTEN (EFREN) [address] [place] [address] * (ABNORMAL) Basic metabolic panel (07/30/2024 11:02 AM CDT) Pathologist [facility] Sodium 130(L) 135 - 145 mmol/L Comment:Testing performed by : [address], [address] Potassium, pl 4.3 3.3 - 4.9 mmol/L [facility] (EFREN) Comment:Testing performed by : [address] [address] Chloride 96(L) 97 - 110 mmol/L [facility] (EFREN) Comment:Testing performed by : [address], [address] CO2 24 22 - 32 mmol/L [facility] (EFREN) Comment:Testing performed by : [address], [address] Anion gap 10 2 - 15 mmol/L [facility] (EFREN) Comment:Testing performed by : [facility], [address] [place] [address]., [address] BUN 10 6 - 25 mg/dL NAILA WHITTEN (EFREN) Comment:Testing performed by : [address] [address] Creatinine 0.69 0.60 - 1.10 mg/dL NAILA WHITTEN (EFREN) Comment:Testing performed by : [facility], [address] [place] [address]., [address] Glucose 84 70 - 199 mg/dL NAILA WHITTEN (EFREN) Comment: Interpretive Data Fasting glucose >/= [...] was last revised 2022. Testing performed by: [facility], [address] [place] [address]., [address] Calcium 9.2 8.5 - 10.3 mg/dL NAILA WHITTEN (EFREN) Comment:Testing performed by : [address] [address] Blood 07/30/2024 11:0 2 AM CDT 07/30/2024 6:07 PM CDT Verona Garcia NP LAB BLOOD ORDERABLES Final Result NAILA FISH (PERRY) 1 [facility] [place] [address] * Marroquin Visual Field - OU - Both Eyes (07/17/2024 10:30 AM PERSONNEL SECURITY ASSISTANT) Pattern Deviation OS 7.37 CONTINUUM Pattern Deviation OD 5.62 CONTINUUM Mean Deviation OS -13.01 CONTINUUM Mean Deviation OD -27.57 CONTINUUM Anatomical Region Laterality Modality Head Visual Field Narrative 07/21/2024 8:30 AM PERSONNEL SECURITY ASSISTANT Right Eye Fixation was borderline. Reliability was poor. Mean Deviation was -27.57. Pattern Deviation was 5.62. Left Eye Fixation was borderline. Reliability was poor. Mean Deviation was -13.01. Pattern Deviation was 7.37. Notes False negatives OD 40%, false negatives and/A OS. Bilateral testing is very unreliable. Patient has a difficult time sitting in the scanner for that long Val Long MD OPH VISUAL FIELD F inal Result * SCAN - LABS (07/12/2024) Provider Scanning Edited Result - Final * Dexa Axial Skeleton Bone Density 1 or 2 Site (03/21/2024 12:26 PM CDT) Anatomical Region Laterality Modality Body N/A Radiographic Martha ging Narrative 03/21/2024 4:28 PM CDT Patient Name: Bozena Howe Date of : 1940 Date of scan: 03/21/2024 Bone mineral density was performed on a HoloVenturepax Discovery Densitometer. Based on machine cross-calibration and [...] by the International Society of Clinical Densitometry. [id number] Fracisco De Leon MD IMG DXA PROCEDURES Final Result from Last 3 Months or Most Recently Relevant to Health Maintenance Insurance [facility] MEDICARE ADVANTAGE [facility] MEDICARE ADVANTAGE [facility] MEDICARE ADVANTAGE Advance Directives For more information, please contact: [phone] * Full Code (Latest Code Status on File) Date Activated Date Inactivated Comments 05/19/2023 2:01 AM 05/27/2023 7:22 PM * Full Code Date Activated Date Inactivated Comments 05/11/2019 8:20 PM 05/12/2019 7:47 PM Care Teams Partner Marketing Intern Relationship Specialty Start Date End Date [place] [address] PCP - General Family Medicine 11/12/19
--- OUTSIDE RECORDS SUMMARY | 2024-08-15 13:45 | XMS_ITS | Continuity of Care Document ---
Author Organization [facility] Address [address] [place] [address] Phone Care Team Providers Care Product Ambassador Name Role Phone Boom Hernandez MD Unavailable Unavailable Advance Directives Directive Yes / No Effective Date File Name No Information Encounters Encounter Description Practice Location Reason(s) For Visit Diagnoses Date Provider Providers Copied on Encounter [facility], [address], [place], [place], [id number], [place] tel:[phone] SEC Srinivas Rosemary York No Information 1 David Nur. [address] [facility], [facility], [place], [place], [id number], [place]. tel:[phone] Family History Family Member Type Diagnosis Age At Onset No Information Payers Payer name Insurance type Covered constitution party ID Authoriza tion(s) No Information Social [...]
--- NOTE | 2024-08-15 14:06 | ED_ITS ---
HPI - Extremity Injury (Upper) General Chief Complaint: Extremity Injury, Upper Stated Complaint: left shoulder to elbow pain Source: patient Mode of arrival: ambulatory Limitations: no limitations History of Present Illness HPI narrative: a 4-year-old female history of hypertension presented for complaint of left upper arm pain. Onset this morning. Reports pushing up from the bed while getting up this morning and felt a pop in the shoulder area. Pt refuses to take anything for pain. Denies radiating pain, chest pain, arm numbness, tingling or weakness. Related Data Home Medications ?Medication ?Instructions ?Recorded ?Confirmed ?Last Taken ?Type aspirin 81 mg tablet,delayed 81 mg PO DAILY 05/28/19 05/28/19 Unknown History release (Adult Aspirin Regimen) metoprolol succinate 50 mg capsule 50 mg PO DAILY 05/28/19 05/28/19 Unknown History sprinkle, ext. release 24 hr nitroglycerin 0.4 mg sublingual 0.4 mg sublingual Q5M PRN 05/28/19 05/28/19 Unknown History tablet meclizine 12.5 mg tablet 12.5 mg PO BID PRN 06/30/19 Unknown History alendronate 70 mg tablet mg PO 07/12/24 Unknown History carbidopa 25 mg-levodopa 100 mg tablet 07/12/24 Unknown History tablet donepezil 5 mg tablet mg 07/12/24 Unknown History furosemide 20 mg tablet mg 07/12/24 Unknown History potassium chloride 10 mEq meq PO 07/12/24 Unknown History tablet,extended release Allergies Allergy/AdvReac Type Severity Reaction Status Date / Time clonidine Allergy Unknown Hallucinati Verified 08/15/24 13:50 ng Review of Systems Review of Systems: CONSTITUTIONAL: Denies body aches, fever, chills CARDIOVASCULAR: Denies chest pain, palpitations, or edema. RESPIRATORY: Denies cough or dyspnea. GASTROINTESTINAL: Denies abdominal pain, nausea, vomiting, or diarrhea. SKIN: Denies rash or wounds. MUSCULOSKELETAL: reports left upper arm pain NEUROLOGIC: Denies numbness, tingling, or weakness. All systems reviewed & are unremarkable except as noted in HPI and below PMFSH Past Medical History Medical History SVT (supraventricular tachycardia) Surgical History Surgical History History of appendectomy History of bladder suspension procedure Hx of tonsillectomy H/O: hysterectomy Family History Family History Father Cerebrovascular accident Sibling Family history of cardiovascular disease Social History Social History Smoking status: Never smoker Second hand tobacco smoke exposure: No Alcohol intake: never Comments At time of signature, I have reviewed and agree with nursing past medical, surgical, social and family history unless otherwise noted. Please see nursing chart for further information. There is no relevant family history pertinent to the presenting complaint Exam Narrative: GENERAL: Well-appearing, hard of hearing. CHEST: Speaks in full sentences. No respiratory distress. HEART: Regular rate and rhythm. Normal and equal peripheral pulses. EXTREMITIES: Pt rubbing left upper arm. BUEs have normal strength and sensation, equal range of motion at shoulders and elbows endorses left arm pain with movement and tenderness with palpation over the humerus, and multiple sites over the scapula and back. No edema or ecchymosis over humerus. No open wounds, or obvious deformity; alignment normal, pulse palpable and equal bilaterally, skin warm, dry, pink. Capillary refill less than 3 seconds. SKIN: Warm, dry, no rash. Scattered bruising. poor skin turgor. NEURO: Alert and oriented x3. PSYCH: Normal mood and affect Course Course Emergency Course: Patient is aware of diagnosis, understands and agrees to treatment plan. Anticipatory guidance given. Patient agrees to follow-up as directed and is aware of reasons to seek care at the emergency department. Portions of this record may have been created with voice recognition software Level of Care: Express Care Visit Vital Signs Vital signs: Vital Signs Temperature 96.8 F L 08/15/24 13:37 Pulse Rate 67 08/15/24 13:37 Respiratory Rate 20 08/15/24 13:37 Blood Pressure 100/54 L 08/15/24 13:37 Pulse Oximetry 100 08/15/24 13:37 Oxygen Delivery Room Air 08/15/24 13:37 Temperature 96.8 F L 08/15/24 13:37 Pulse Rate 67 08/15/24 13:37 Respiratory Rate 20 08/15/24 13:37 Blood Pressure 100/54 L 08/15/24 13:37 Pulse Oximetry 100 08/15/24 13:37 Oxygen Delivery Room Air 08/15/24 13:37 Reviewed MDM - Extremity Injury (Upper) MDM Narrative Medical decision making narrative: Patient's injury and pain appear to be of musculoskeletal nature. No concerns for compartment syndrome, tendon or nerve injury. Discussed physical exam findings and xray. Advised supportive measures and signs/symptoms to go to the ER. Pt is appropriate for outpt treatment and f/u. Differential Diagnosis Differential diagnosis: Likely dislocation of shoulder, fracture of humerus and fracture of clavicle Imaging Data Radiologist's impression: Patient: Bozena Howe : 1940 MR#: [id number] Age: 84 Acct:[id number] Loc: [facility] ADM Date: 08/15/24Attending Dr: Ordering Physician: Carmelita Bills APRN Date of Service: 08/15/24 Procedure(s): XR humerus LT; XR shoulder LT min 2V Accession Number(s): [id number]; [id number] cc: Harms, Anthony Yee MD; Carmelita Bills APRN~ EXAMINATION: XR shoulder LT min 2V, XR humerus LT DATE: 08/15/2024 14:24 INDICATION: Generalized left upper arm and shoulder pain post injury with palpable pop TECHNIQUE: 1. AP internally and externally rotated, AP oblique externally rotated and transscapular Y views of the left shoulder were obtained. 2. AP and lateral views of the left humerus were obtained. COMPARISON: None FINDINGS: Normal alignment. No fracture.Moderate left glenohumeral and acromioclavicular osteoarthritis. Mild osteoarthritis at the left elbow. Multiple small round dystrophic calcifications versus tiny phleboliths project over the subcutaneous tissues along the left upper arm. Soft tissues are otherwise unremarkable. Visualized portion of the left lung are clear. 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 No acute osseous abnormality. Discharge Plan Discharge Clinical Impression: Musculoskeletal arm pain Patient Disposition: Home, Self-Care Condition: Stable Instructions: Antibiotic Form, Osteoarthritis (ED) Additional Instructions: Rest. Avoid pushing, pulling, lifting or anything that worsens the symptoms Tylenol 650mg every 8 hours as needed Alternate ice/heat to the site. pain cream like icy/hot or biofreeze. Follow up with your primary care provider as needed in 1 week Go to the ER for worsening symptoms or concerns Patient Language: [place]de[place] Prescriptions: No Action donepezil 5 mg tablet alendronate 70 mg tablet PO potassium chloride 10 mEq tablet extended release PO furosemide 20 mg tablet carbidopa-levodopa 25-100 mg tablet meclizine 12.5 mg tablet 12.5 mg PO BID PRN metoprolol succinate 50 mg capsule,sprinkle,ER 24hr 50 mg PO DAILY aspirin [Adult Aspirin Regimen] 81 mg tablet,delayed release (DR/EC) 81 mg PO DAILY nitroglycerin 0.4 mg tablet, sublingual 0.4 mg SUBLINGUAL Q5M PRN amlodipine 10 mg tablet See Rx Instructions .ROUTE .COMPLEX Qty: 90 1RF Dose Instruction: TAKE 1 TABLET BY MOUTH DAILY Rx Instructions: TAKE 1 TABLET BY MOUTH DAILY losartan 100 mg tablet 100 mg PO DAILY Qty: 90 1RF Follow-up/Referrals: Harms,Anthony Yee M.D. [Primary Care Provider] - Time of Disposition: 15:11
== END 2024-08-15 15:15 | disposition home or self-care (01) ==
PROVIDERS: Emergency Provider Nurse Practitioner Family; PCP Family Medicine
DX: M25.522 Pain in left elbow (principal); M25.512 Pain in left shoulder; I10 Essential (primary) hypertension
CPT/HCPCS: 73030; 73060; 99213; G0463

== ENCOUNTER 2024-09-17 11:07 | Emergency (ER) | payer MEDICARE, SELFPAY ==
[2024-09-17 11:13] VITALS: BP 172/61; PULSE 67; RESP 16; TEMP 36.1; O2SAT 100
--- NOTE | 2024-09-17 11:20 | ED.FEMALEGU ---
HPI - Female Genitourinary General Chief complaint: Urogenital-Female Stated complaint: Urinary Problem Time Seen by Provider: 09/17/24 11:35 Source: patient and family Mode of arrival: ambulatory Limitations: no limitations History of Present Illness HPI Narrative: Bozena is a 84-year-old female patient presenting to the clinic today with complaints of possible urinary tract infection. Son states that over the past week she has had some increased in confusion and urinary incontinence. States that this has 2 months ago when she had a urinary tract infection. Complaining of some suprapubic pain, dysuria, and low back pain. No fever, chills, body aches. No nausea or vomiting. Related Data Home Medications ?Medication ?Instructions ?Recorded ?Confirmed ?Last Taken ?Type aspirin 81 mg tablet,delayed 81 mg PO DAILY 05/28/19 05/28/19 Unknown History release (Adult Aspirin Regimen) metoprolol succinate 50 mg capsule 50 mg PO DAILY 05/28/19 05/28/19 Unknown History sprinkle, ext. release 24 hr nitroglycerin 0.4 mg sublingual 0.4 mg sublingual Q5M PRN 05/28/19 05/28/19 Unknown History tablet meclizine 12.5 mg tablet 12.5 mg PO BID PRN 06/30/19 Unknown History alendronate 70 mg tablet mg PO 07/12/24 Unknown History carbidopa 25 mg-levodopa 100 mg tablet 07/12/24 Unknown History tablet donepezil 5 mg tablet mg 07/12/24 Unknown History furosemide 20 mg tablet mg 07/12/24 Unknown History potassium chloride 10 mEq meq PO 07/12/24 Unknown History tablet,extended release Allergies Allergy/AdvReac Type Severity Reaction Status Date / Time clonidine Allergy Unknown Hallucinati Verified 09/17/24 11:10 ng Review of Systems Review of Systems: Pertinent positives per HPI. Patient denies any fever, chills, rash, headache, visual changes, dizziness, cough, runny nose, sore throat, shortness of breath, chest pain, palpitations, nausea, vomiting, diarrhea, constipation PMFSH Past Medical History Medical History SVT (supraventricular tachycardia) Surgical History Surgical History History of appendectomy History of bladder suspension procedure Hx of tonsillectomy H/O: hysterectomy Family History Family History Father Cerebrovascular accident Sibling Family history of cardiovascular disease Social History Social History Smoking status: Never smoker Second hand tobacco smoke exposure: No Alcohol intake: never Comments At the time of my signature, I reviewed and agree with the nursing past medical, surgical, social, and family history. There is no relevant family history pertinent to the patient complaint. Exam Narrative: General: Well-developed, well nourished, in no apparent distress. Head: Normocephalic, atraumatic. Cardio: Regular rate and rhythm, s1 and s2 normal, no murmur appreciated. Resp: Clear to auscultation bilaterally, no rhonchi, rales, wheezing or rubs. Abdomen: Soft, pliable, bowel sounds present in all quadrants, suprapubic tender to palpation, no organomegly, no CVAT tenderness. Course Course Emergency Course: Portions of this record may have been created with voice recognition software. Level of Care: Express Care Visit Vital Signs Vital signs: Vital Signs Temperature 36.1 C L 09/17/24 11:13 Pulse Rate 67 09/17/24 11:13 Respiratory Rate 16 09/17/24 11:13 Blood Pressure 172/61 H 09/17/24 11:13 Pulse Oximetry 100 09/17/24 11:13 Oxygen Delivery Room Air 09/17/24 11:13 Temperature 36.1 C L 09/17/24 11:13 Pulse Rate 67 09/17/24 11:13 Respiratory Rate 16 09/17/24 11:13 Blood Pressure 172/61 H 09/17/24 11:13 Pulse Oximetry 100 09/17/24 11:13 Oxygen Delivery Room Air 09/17/24 11:13 Vital signs reviewed MDM - Female Genitourinary MDM Narrative Medical decision making narrative: At the time of visit patient is resting comfortably on the exam table. Patient appears to be nontoxic. Labs: Urinalysis positive for leukocytes and blood. We will send urine for culture. Plan: I suspect patient has UTI. Prescription for Augmentin was sent to the pharmacy. Last culture was positive for E coli and susceptible to all the antibiotics tested. Supportive measures were discussed with the patient and they voiced understanding discharge instructions and agrees to treatment plan. Return precautions reviewed Differential Diagnosis Differential diagnosis: Likely urinary tract infection and cystitis Discharge Plan Discharge Clinical Impression: Urinary tract infection Qualifiers: Urinary tract infection type: acute cystitis Hematuria presence: with hematuria Qualified Code(s): N30.01 - Acute cystitis with hematuria Patient Disposition: Home Condition: Stable Instructions: Antibiotic Form, Urinary Tract Infection in Older Adults (ED) Additional Instructions: Urinalysis positive for leukocytes and blood. We will send for culture Take Augmentin as prescribed Increase fluids and stay well hydrated Wipe front to back. May use wet wipes. Avoid tub baths If sexually active- pee before and after intercourse. Wear cotton panties Avoid tight clothing up against the genitals Follow up with your PCP in 1 week if symptoms persist. Patient Language: Surinamese Prescriptions: New amoxicillin-pot clavulanate 875-125 mg tablet 1 tablet PO Q12H 7 Days Qty: 14 0RF No Action donepezil 5 mg tablet alendronate 70 mg tablet PO potassium chloride 10 mEq tablet extended release PO furosemide 20 mg tablet carbidopa-levodopa 25-100 mg tablet meclizine 12.5 mg tablet 12.5 mg PO BID PRN metoprolol succinate 50 mg capsule,sprinkle,ER 24hr 50 mg PO DAILY aspirin [Adult Aspirin Regimen] 81 mg tablet,delayed release (DR/EC) 81 mg PO DAILY nitroglycerin 0.4 mg tablet, sublingual 0.4 mg SUBLINGUAL Q5M PRN amlodipine 10 mg tablet See Rx Instructions .ROUTE .COMPLEX Qty: 90 1RF Dose Instruction: TAKE 1 TABLET BY MOUTH DAILY Rx Instructions: TAKE 1 TABLET BY MOUTH DAILY losartan 100 mg tablet 100 mg PO DAILY Qty: 90 1RF Follow-up/Referrals: Pio,Anthony Yee M.D. [Primary Care Provider] - Time of Disposition: 13:06 Quality NIHSS Nursing Documentation ED NIHSS nursing documentation: reviewed/agree
--- OUTSIDE RECORDS SUMMARY | 2024-09-17 12:40 | XMS_ITS | Clinical Summary ---
Author Organization [facility] Address [address] [place] [address] Care Team Providers Care Brim Setter Name Role Phone Anthony Suero MD Primary Care Provider [phone] Allergies Active Allergy Reactions Criticality Noted Date Comments Clonidine Hallucinations Medium 12/10/2019 Medications cholecalciferol (VITAMIN D-3) 1,000 unit capsule Take 1 capsule (1,000 Units total) by mouth daily OTC Active melatonin tablet Take 2 tablets (2 mg total) by mouth nightly as needed for sleep OTC Active aspirin 81 mg enteric coated tablet Take 1 tablet (81 mg total) by mouth daily 05/28/19 24 Active calcium carbonate (OS-LIO) 1,250 mg (500 mg elemental) tablet Take 1 tablet (1,250 mg total) by mouth daily 05/28/19 24 Active Additional Information Patient not taking.Reported on 07/17/2024 polyethylene glycol (MIRALAX) 17 gram packetIndication s:constipation Take 1 packet (17 g total) by mouth daily as needed for constipation 05/27/19 24 Active Additional Information Patient not taking.Reported on 07/17/2024 omeprazole (PriLOSEC) 20 mg capsule Take 1 capsule (20 mg total) by mouth daily Active diphenoxylate-at ropine (LOMOTIL) 2.5-0.025 mg per tabletIndication s:diarrhea Take 1 tablet by mouth 4 (four) times a day as needed for diarrhea 30 tablet 09/28/19 24 Active acetaminophen (TYLENOL) 325 mg tablet Take 2 tablets (650 mg total) by mouth every 6 (six) hours as needed for pain Active furosemide (LASIX) 20 mg tablet TAKE 1 TABLET(20 MG) BY MOUTH DAILY 90 tablet 3 03/10/20 24 Active calcium carbonate-vitami n D3 1,250 mg (500 mg elemental)-400 unit tablet Take by mouth Calcium-500 mg Vitamin d3-20 mcg (800 international units) Active potassium chloride ER 10 mEq CR tablet TAKE 1 TABLET(10 MEQ) BY MOUTH DAILY 90 tablet 04/28/20 24 Active carbidopa-levodo pa (SINEMET) 25-100 mg per tablet TAKE 1 TABLET BY MOUTH THREE TIMES DAILY 270 tablet 1 05/15/20 24 Active alendronate (FOSAMAX) 70 mg tablet TAKE 1 TABLET(70 MG) BY MOUTH EVERY 7 DAYS ON AN EMPTY STOMACH. DO NOT LIE DOWN OR EAT FOR 30 MINUTES AFTER TAKING 4 tablet 11 05/19/20 24 Active losartan (COZAAR) 100 mg tabletIndication s:Essential hypertension TAKE 1 TABLET(100 MG) BY MOUTH DAILY 90 tablet 1 07/01/19 25 Active metoprolol XL (TOPROL-XL) 50 mg extended release tabletIndication s:Paroxysmal SVT (supraventricula r tachycardia) TAKE 1 TABLET(50 MG) BY MOUTH DAILY 90 tablet 07/01/19 25 Active cephalexin (KEFLEX) 500 mg capsule Take 1 capsule (500 mg total) by mouth every 12 (twelve) hours 07/12/19 25 Active donepeziL (ARICEPT) 5 mg tablet Take 1 tablet (5 mg total) by mouth nightly 90 tablet 1 07/22/19 25 Active amLODIPine (NORVASC) 5 mg tabletIndication s:Essential hypertension Take 1 tablet (5 mg total) by mouth daily 90 tablet 09/16/19 25 Active losartan (COZAAR) 50 mg tabletIndication s:Essential hypertension Take 1 tablet (50 mg total) by mouth daily 90 tablet 09/16/19 25 Active amLODIPine (NORVASC) 5 mg tabletIndication s:Essential hypertension TAKE 1 TABLET BY MOUTH DAILY 90 tablet 07/17/19 25 025 Discontin ued(Reord er) losartan (COZAAR) 50 mg tabletIndication s:Essential hypertension TAKE 1 TABLET(50 MG) BY MOUTH DAILY 90 tablet 07/17/19 25 025 Discontin ued([facility]) Hospital, Clinic, or Other Facility Administered Medication [...] Plan (07/30/2024 1:17 PM CDT): Returning to [facility] for exercise which has provided improvement in the past. Will monitor response. Safety reviewed. Pressure injury of right buttock, stage 1 2024 Assessment & Plan (07/30/2024 1:14 PM CDT): No open areas. Reviewed position changes, soft surfaces. Get up and get moving as much as possible. Continue monitoring. Assessment & Plan (07/17/2024 2:56 PM PEDIATRIC SPEECH THERAPIST): Discussed position changes and off setting pressure with pillow under hip when sleeping. Advised to monitor and keep eye on to make sure it does not open. Will continue to monitor. Impaired hydration 07/17/2024 Assessment & Plan (07/17/2024 2:56 PM PEDIATRIC SPEECH THERAPIST): Discussed importance of drinking at least 3-4 water bottles (16 oz each) daily to ensure proper hydration but not causing fluid overload. BMI 25.0-25.9,adult 07/17/2024 Assessment & Plan (07/17/2024 2:57 PM PEDIATRIC SPEECH THERAPIST): Weight appropriate for patient. Parkinsonism, unspecified Parkinsonism type 01/2024 Assessment & Plan (07/30/2024 1:16 PM CDT): Following with Neurology. Encouraged to continue moving. Assessment & Plan (04/28/2024 4:22 PM PEDIATRIC SPEECH THERAPIST): Continue f/u with neurology and will montior respnose. WIll continue on sinemet. Closed compression fracture of L4 vertebra 10/17 Closed compression fracture of L3 vertebra 10/17 Assessment & Plan (04/28/2024 4:22 PM PEDIATRIC SPEECH THERAPIST): Sig pain relief s/p vertebroplasty and will continue to follow response. Closed compression fracture of L2 vertebra 10/17 Skin breakdown 06/13/2023 Assessment & Plan (06/13/2023 2:28 PM PEDIATRIC SPEECH THERAPIST): Continue topical dressing and will follow with home health. Stay off bottom as much as possible. When sitting sit on soft cushions. Hospital discharge follow-up 06/13/2023 Assessment & Plan (06/13/2023 2:29 PM PEDIATRIC SPEECH THERAPIST): IVerona NP have personally reviewed pertinent inpatient and/or ED records, including discharge medications and [employer]esk if applicable. This patient's discharge medication list has been reviewed and reconciled with her outpatient medication list and has also been reviewed with patient and/or caregiver. I have noted any changes. Mitral regurgitation 05/19/2023 Assessment & Plan (05/24/2023 11:56 AM PEDIATRIC SPEECH THERAPIST): Last TTE 04/2023 with no WMAs, EF [...] days Assessment & Plan (07/17/2024 3:25 PM PEDIATRIC SPEECH THERAPIST): Pt has completed her steroid taper. She [...] stimulus. Assessment & Plan (04/28/2024 4:20 PM PEDIATRIC SPEECH THERAPIST): Continue f/u with Dr. Mackenzie. Reduced prednisone [...] (01/10/2024 2:00 PM CDT): Scheduled follow up Nov with ophthalmology. Assessment & Plan (11/12/2023 5:02 [...] OU Assessment & Plan (07/27/2023 4:40 PM PEDIATRIC SPEECH THERAPIST): Despite the non-diagnostic temporal artery biopsy the [...] RNFL Assessment & Plan (06/17/2023 4:17 PM PEDIATRIC SPEECH THERAPIST): Seeing Rheumatology today to manage steroids. Exam [...] RNFL/GCC) Assessment & Plan (06/13/2023 2:29 PM PEDIATRIC SPEECH THERAPIST): Vision improving. She has follow-up with specialist. Will continue with prednisone. Assessment & Plan (05/25/2023 11:38 AM PEDIATRIC SPEECH THERAPIST): Pt reports vision blurriness for at least [...] 05/18/2023 Assessment & Plan (05/26/2023 9:47 AM PEDIATRIC SPEECH THERAPIST): -Ophtho exam 05/23 showing improvement in vision [...] 08/08/2021 Assessment & Plan (06/13/2023 2:27 PM PEDIATRIC SPEECH THERAPIST): Continue with topical antifungal on hand. Also recommend soaking with warm Epsom salt soak prior to applying medication. Will monitor response. Assessment & Plan (12/15/2021 9:56 AM CDT): Using topical OTC antifungal with mild improvement. Discussed need to continue treatment and monitoring. Assessment & Plan (08/08/2021 1:00 PM CDT): Discussed topical treatment options with patient and her son. Recommended avoiding nail Faroese during treatment. May need to use coupon from drug [employer] website for medication. Patient declined referral to podiatry. Osteoporosis without current pathological fractu re 01/03/2021 Assessment & Plan (07/30/2024 1:15 PM CDT): Have discussed with family, PCP, crisis intervention counselor regarding treatment options. Reviewed with son today as well. They will follow-up next month with a crisis intervention counselor to further discuss. Assessment & Plan (04/28/2024 4:21 PM PEDIATRIC SPEECH THERAPIST): See discussion as above. Patinet and family given information on Forteo and Evenity and discussion fo alternater mechanisms of action and also interaction with comorbiditeis. Reviewed fall prevention and patient is ambulating with assistance of a walker and rollator. Assessment & Plan (05/19/2023 1:14 AM PEDIATRIC SPEECH THERAPIST): - c/w home vit D. On calcium [...] home. Assessment & Plan (07/17/2024 2:54 PM PEDIATRIC SPEECH THERAPIST): Will trial decreasing Losartan to 50 mg and Amlodipine to 5 mg along with holding Lasix and using PRN. Will monitor blood pressure for any changes. Assessment & Plan (04/28/2024 4:23 PM PEDIATRIC SPEECH THERAPIST): Stable on lsoartan and metoprolol XL. No sig orthostasis. Cnotinues on amlodipine. Assessment & Plan (01/10/2024 2:20 PM CDT): Blood pressure is well controlled, continue present management. Assessment & Plan (05/24/2023 11:50 AM PEDIATRIC SPEECH THERAPIST): - BP meds restarted, initially held for [...] Will continue to monitor. Next OV with email production consultant 02/08/21. Assessment & Plan (02/10/2020 10:24 AM CDT): Patient's blood pressure appears to be under adequate control. If additional treatment is required consideration to chlorthalidone 25 mg daily could be considered. Assessment & Plan (05/12/2019 5:28 AM PEDIATRIC SPEECH THERAPIST): Holding home losartan and amlodipine Patient was started on metoprolol. Paroxysmal SVT (supraventricular tachycardia) Assessment & Plan (04/28/2024 4:21 PM PEDIATRIC SPEECH THERAPIST): Continues on metoprolol XL and will follow response. Assessment & Plan (05/19/2023 1:06 AM PEDIATRIC SPEECH THERAPIST): Hx of this. No episodes in years. [...] regimen. Assessment & Plan (05/12/2019 5:35 AM PEDIATRIC SPEECH THERAPIST): Resolved with adenosine. The currently in sinus rhythm. Will continue with metoprolol. Non-STEMI (non-ST elevated myocardial infarction ) 05/12/2019 Assessment & Plan (05/12/2019 5:28 AM PEDIATRIC SPEECH THERAPIST): Patient currently denies any chest pain. Denies [...] 05/25/2023 Assessment & Plan (05/24/2023 12:07 PM PEDIATRIC SPEECH THERAPIST): UTI growing 100k E coli. Pt denies dysuria, but can get confused. - Afebrile, WBC nml, at baseline mentation at this time - Ceftriaxone 1g q24 (05/21-05/25) Vertigo 02/10/2020 02/10/2020 Encounters Date Type Department Care Team Description 08/15/2024 Orders Only [facility] Health Information Management [address] [place] [address] Scanning, Provider 08/15/2024 Nurse Triage [facility] [address] [address] Anthony Suero MD 08/04/2024 Results Follow-Up [facility] [address] [address] Verona Garcia NP Hyponatremia (Primary Dx) 07/30/2024 11:05 AM CDT Lab [facility] [address] [place] [address] Vitamin B12 deficiency; Essential hypertension 07/30/2024 10:30 AM CDT Office Visit [facility] [address] [address] Verona Garcia NP Essential hypertension (Primary Dx); Vitamin B12 deficiency; Pressure injury of right buttock, stage 1; Age-related osteoporosis without current pathological fracture; Parkinsonism, unspecified Parkinsonism type (HCC); Chronic hip pain, bilateral 07/29/2024 Nurse Triage [facility] [address] [address] Anthony Suero MD 07/25/2024 Nurse Triage [facility] [address] [address] Anthony Suero MD 07/17/2024 2:00 PM PEDIATRIC SPEECH THERAPIST Office Visit [facility] [address] [address] Lindsay Cruz NP Essential hypertension (Primary Dx); Pressure injury of right buttock, stage 1; Impaired hydration; BMI 25.0-25.9,adult 07/17/2024 10:30 AM PEDIATRIC SPEECH THERAPIST Office Visit [facility] [address] [place] [address] [address] [place] [address] Val Long MD Giant cell arteritis (HCC) (Primary Dx) 06/24/2024 11:00 AM PEDIATRIC SPEECH THERAPIST Office Visit [facility] [address] [place] [id number] Cece Dumont, SENIOR TECHNICAL ANALYST Skin tear of forearm without complication, left, initial encounter (Primary Dx) from Last 3 Months Immunizations [...] on file Legal Sex Female 2:17 AM PEDIATRIC SPEECH THERAPIST Gender Identity Not on file Sexual Orientation [...] 03/03/2013 01/06/2013 Well Visit 65+ 01/09/2025 01/10/2024, 0705/2022, 12/15/2021, Additional history exists Depression Screening 07/17/2025 07/17/2024, 04/28/2024, 01/10/2024, Additional history exists Fall Risk Assessment 07/17/2025 07/17/2024, 04/28/2024, 01/10/2024, Additional history exists Osteoporosis Screening-Bone Density Scan 03/21/2026 03/21/2024, 04/25/2023, 04/25/2023, Additional history exists DTaP/Tdap/Td Vaccine (2 - Td or Tdap) 12/08/2030 12/08/2020 Pneumococcal vaccine 65+ Completed 11/12/2019, 01/20 Influenza Vaccine Completed 04/03/2024, , 03/03/2022, Additional history exists Medical Devices Implanted Type Area Performance Instructor Device Identifier Shelf Expiration Date Model / Serial / Lot [employer]ayCozy Cloud Vertaplex Hv Autoplex Without Needle Delivery System Kit Bone [id number] - [id number] Implanted:Qty : 1 on 11/05/2023 by Harris Paez MD at [facility] Bone Cement N/A: Spine Lumbar [employer] 03/20/2025 [id number] / / [id number] Description:L2-L4 Procedures Procedure Name Priority Date/Time Associated Diagnosis Comments SCAN - RADIOLOGY/IMAGING 08/15/2024 EGFR Routine 07/30/2024 11:02 AM CDT Essential hypertension BASIC METABOLIC PANEL Routine 07/30/2024 11:02 AM CDT Essential hypertension VITAMIN B12 Routine 07/30/2024 11:02 AM CDT Vitamin B12 deficiency MARROQUIN VISUAL FIELD - OU - BOTH EYES Routine 07/17/2024 10:30 AM PEDIATRIC SPEECH THERAPIST Giant cell arteritis (HCC) SCAN - LABS 07/12/2024 DEXA AXIAL SKELETON BONE DENSITY 1 OR MORE SITES Schedule Routine, Read Routine (OP Routine) 03/21/2024 12:26 PM CDT Age-related osteoporosis without current pathological fracture from Last 3 Months or Most Recently Relevant to Health Maintenance Results * SCAN - RADIOLOGY/IMAGING (08/15/2024) Anatomical Region Laterality Modality Other us Provider Scanning Final Result * eGFR (07/30/2024 11:02 AM CDT) eGFR [...] was last reviewed 2021. Testing performed by: [facility], [address] [place] [address]., [address] Blood 07/30/2024 11:0 2 AM CDT 07/30/2024 6:13 PM CDT Verona Garcia NP LAB BLOOD ORDERABLES Final Result [facility] [place] [facility] [place] [address] * Vitamin B12 (07/30/2024 11:02 AM CDT) Vitamin B12 987 230 - 1,250 pg/mL Comment:Testing performed by : [facility], [address] [place] [address], [place]., [address] Blood 07/30/2024 11:0 2 AM CDT 07/30/2024 6:07 PM CDT us Verona Garcia NP LAB BLOOD ORDERABLES Final Result [facility] ([place]) 1 [facility] Department [place] [address] * (ABNORMAL) Basic metabolic panel (07/30/2024 11:02 AM CDT) Sodium 130(L) 135 - 145 mmol/L Comment:Testing performed by : [facility], [address] [place] [address]., [address] Potassium, pl 4.3 3.3 - 4.9 mmol/L [facility] ([place]) Comment:Testing performed by : [facility], [address] [place] [address], [address] Chloride 96(L) 97 - 110 mmol/L [facility] ([place]) Comment:Testing performed by : [address], [address] CO2 24 22 - 32 mmol/L [facility] ([place]) Comment:Testing performed by : [facility], [address] [place] [address]., [address] Anion gap 10 2 - 15 mmol/L [facility] ([place]) Comment:Testing performed by : [facility], [address] [place] [address]., [address] BUN 10 6 - 25 mg/dL [facility] ([place]) Comment:Testing performed by : [address], [address] Creatinine 0.69 0.60 - 1.10 mg/dL [facility] ([place]) Comment:Testing performed by : [address], [address] Glucose 84 70 - 199 mg/dL [facility] [...] was last revised 2022. Testing performed by: [facility], [address] [place] [address]., [address] Calcium 9.2 8.5 - 10.3 mg/dL [facility] ([place]) Comment:Testing performed by : [facility], [address] [place] [address]., [address] Blood 07/30/2024 11:0 2 AM CDT 07/30/2024 6:07 PM CDT us Verona Garcia NP LAB BLOOD ORDERABLES Final Result [facility] ([place]) 1 [facility] [place] [address] * Marroquin Visual Field - OU - Both Eyes (07/17/2024 10:30 AM PEDIATRIC SPEECH THERAPIST) Pathologist [facility] Pattern Deviation OS 7.37 CONTINUUM Pattern Deviation OD 5.62 CONTINUUM Mean Deviation OS -13.01 CONTINUUM Mean Deviation OD -27.57 CONTINUUM Anatomical Region Laterality Modality Head Visual Field Narrative 07/21/2024 8:30 AM PEDIATRIC SPEECH THERAPIST Right Eye Fixation was borderline. Reliability was poor. Mean Deviation was -27.57. Pattern Deviation was 5.62. Left Eye Fixation was borderline. Reliability was poor. Mean Deviation was -13.01. Pattern Deviation was 7.37. Notes False negatives OD 40%, false negatives and/A OS. Bilateral testing is very unreliable. Patient has a difficult time sitting in the scanner for that long us Val Long MD [facility] VISUAL FIELD F inal Result * SCAN [...] Bone mineral density was performed on a HoloVisual.ly Discovery Densitometer. Based on machine cross-calibration and [...] density scan were prepared by Shira Peña)(Yvonne)(STACI) CBDT who is accredited by the International Society of Clinical Densitometry. The overall patient assessment and scan interpretation were performed by Rylie Salinas M.D. who is certified by the International Society of Clinical Densitometry. [id number] Fracisco De Leon MD IMG DXA PROCEDURES Final Result from Last 3 Months or Most Recently Relevant to Health Maintenance Insurance [facility] MEDICARE Address: [place] [id number] [facility] Address: [facility] [address] [place] [address] [facility] MEDICARE ADVANTAGE [facility] MEDIC[facility] Address: [place] [id number] [place] [address] Advance Directives For more information, please contact: [phone] * Full Code (Latest Code Status on File) Date Activated Date Inactivated Comments 05/19/2023 2:01 AM 05/27/2023 7:22 PM * Full Code Date Activated Date Inactivated Comments 05/11/2019 8:20 PM 05/12/2019 7:47 PM Care Teams Brim Setter Relationship Specialty Start Date End Date Anthony Suero MD [address] [place] [address] PCP - General Family Medicine 11/12/19
--- OUTSIDE RECORDS SUMMARY | 2024-09-17 12:40 | XMS_ITS | Clinical Summary ---
Author Organization [facility] Address [address] [place] [address] Phone Care Team Providers Care X Ray Developer Name Role Phone Anthony Suero MD Primary Care Provider [phone] Scotty Orozco MD Unavailable [phone] Allergies Active Allergy Reactions Criticality Noted Date Comments Clonidine Hallucinations Medium 12/10/2019 Medications losartan potassium-hydroch lorothiazide (HYZAAR) 100-25 MG Tablet Take 1 Tab by mouth daily. Active amoxicillin-clavu lanate (AUGMENTIN) 875-125 MG Tablet 1 tablet by mouth twice daily with food. 10 Tab 07/05/19 19 Active Additional Information Patient not taking.Reported on 06/16/2024 Acetaminophen 325 MG Capsule Take 2 Tablets by mouth every 6 hours. as needed for pain 06/09/19 24 Active amLODIPine (NORVASC) 10 MG Tablet Take [...] SA (KLORCON M) 10 MEQ Tablet Controlled ReleaseIndication s:Hypokalemia Take 10 mEq by mouth daily. Take 1 tablet (10 meq) by mouth daily Indications: Low Amount of Potassium in the Blood 07/12/19 Active VITAMIN D PO Take by mouth. Ac tive donepezil (ARICEPT) 5 MG Tablet Take 1 Tablet by mouth nightly. 90 Tablet 1 02/19/20 24 Active cyanocobalamin (VITAMIN B-12) 1000 MCG/ML Solution 1,000 mcg by Intramuscular route once a week. 09/14/19 24 Active carbidopa-levodop a (SINEMET) 25-100 MG TabletIndications :Parkinson's disease without dyskinesia or fluctuating manifestations (HCC) Take 1.5 Tablets by mouth 3 times daily. 135 Tablet 2 09/12/19 25 Active carbidopa-levodop a (SINEMET) 25-100 MG Tablet Take 2 Tablets by mouth 3 times daily. 180 Tablet 3 06/16/19 25 025 Discontin ued(Dose adjustmen t) Active Problems Problem Noted Date Diagnosed Date [...] months or sooner, HVF 10-2, OCT RNFL Encounters Date Type Department Care Team Description 09/10/2024 Telephone [facility] - [place] [address] [place] [id number] Scotty Orozco MD 07/24/2024 Telephone [facility] - [facility]rology - [place] [address] [place] [address] Scotty Orozco MD from Last 3 Months Immunizations Immunization Administration [...] = 0.6 oz pur e alcohol) [facility] Utilities Answer Date Recorded In the past 12 months has e [employer], gas, oil, or water [employer] threatened to shut off services in your [...] week 08/10/2023 How often do you attend [facility] ch or scientology services? Never 08/10/2023 Do you belong to any clubs o r organizations such as episcopalian groups, unions, fraternal or athletic groups, or [...] and heating? Not hard at all 08/10/2023 [facility] of Occupat ional Health - Occupational Stress [...] place to sleep or slept in a halfway (including now)? No 08/10/2023 Comments No Sex and Gender Information Value Date Recorded Sex Assigned at Not on file Legal Sex Female 8:44 PM CDT Gender Identity Not on file Sexual Orientation Not on file Last Filed Vital Signs Vital Sign Reading Time Taken Comments Blood Pressure 120/58 06/16/2024 10:43 AM ANSWERER Pulse 58 06/16/2024 10:43 AM ANSWERER Temperature 36.1 C (97 F) 06/16/2024 10:43 AM ANSWERER Respiratory Rate 16 06/16/2024 10:4 3 AM ANSWERER Oxygen Saturation 89% 06/16/2024 10: 43 AM ANSWERER Inhaled Oxygen Concentration - - Weight 55.7 kg (122 lb 12.8 oz) 025 10:43 AM ANSWERER Height 152.4 cm (5') 06/16/2024 10:43 AM ANSWERER Body Mass Index 23.98 06/16/2024 10:43 AM ANSWERER Plan of Treatment Upcoming Encounters Date Type Department Care Team (Late st Contact Info) Description 12/23/2024 11:00 AM CDT Office Visit [facility] - [facility] [address] [place] [address] Scotty Orozco MD [address] [place] [address] Health Maintenance Due Date Last Done Comments [...] to complete this topic Insurance MEDICARE [facility] Advance Directives * Full Code (Latest Code Status on File) Date Activated Date Inactivated Comments 06/19/2023 8:10 AM Care Teams X Ray Developer Relationship Specialty Start Date End Date Anthony Suero MD [address] [place] [address] PCP - General Internal Medicine 06/11/23 Scotty Orozco MD [address] [place] [id number] Consulting Physician Neurology 08/14/23
--- OUTSIDE RECORDS SUMMARY | 2024-09-17 12:40 | XMS_ITS | Clinical Summary ---
Author Organization [facility] Address [address] [place] [address] Care Team Providers Care Internal Carver Name Role Phone Unavailable Primary Care Provider Unavailabl e Source Comments [facility],non-owned Affiliates and Associated Physician Practices is amultiple site organization consisting of ambulatory clinics and hospital sitesin [place], [place], [place] and [place]. This disclosure is being madepursuant to the Care Everywhere program and may not contain all information available regarding this patient. Last updated 18.[facility] Allergies No known active allergies Medications * Be aware that medications may not be up to date on this document. Alwaysverify current medications with the patient. LOSARTAN POTASSIUM PO Active AMLODIPINE BESYLATE PO Active Social History Tobacco Use Types Packs/Day Years Used Date Smoking Tobacco: Never Comments Unknown Sex and Gender Information Value Date Recorded Sex Assigned at Not on file Legal Sex Female 12:53 PM TURNTABLE ENGINEER Gender Identity Not on file Sexual Orientation Not on file Last Filed Vital Signs Vital Sign Reading Time Taken Comments Blood Pressure 124/80 07/20/2017 2:57 PM TURNTABLE ENGINEER Pulse 66 07/20/2017 2:57 PM TURNTABLE ENGINEER Temperature 36.8 C (98.3 F) 07/20/2017 2:57 PM TURNTABLE ENGINEER Respiratory Rate - - Oxygen Saturation - - Inhaled Oxygen Concentration - - Weight 60.8 kg (134 lb) 07/20/2017 2:57 PM TURNTABLE ENGINEER Height 153.7 cm (5' 0.5 ) 07/20/2017 2:57 PM TURNTABLE ENGINEER Body Mass Index 25.74 07/20/2017 2:57 PM TURNTABLE ENGINEER Plan of Treatment Health Maintenance Due Date Last Done Comments BONE DENSITY TESTING 1939 DTAP/TDAP/TD VACCINES (1 - Tdap) 1958 PNEUMOCOCCAL VACCINE 50+ (1 of 1 - PCV) 1989 ZOSTER VACCINE (1 of 2) 1989 Respiratory Syncytial Virus (RSV) Vaccine Pt: or over 60 yrs (1 - 1-dose 75+ series) 2014 COVID-19 VACCINE (1 - season) 2024 DEPRESSION SCREENING 05/21/2024 INFLUENZA VACCINE (Season Ended) 2025 02/25/2019, 02/18/2019, 02/18/2018, Additional history exists HEPATITIS B VACCINE Aged Out No longe [...] patient's age to complete this topic Insurance [employer] MANAGED MEDICARE ADV
--- OUTSIDE RECORDS SUMMARY | 2024-09-17 12:40 | XMS_ITS | Referral Summary ---
Author Organization [facility] Address [address] [place] [address] Care Team Providers Care Fermentologist Name Role Phone Anthony Suero MD Primary Care Provider [phone] Encounters Date Type Department Care Team Description 08/15/2024 Orders Only [facility] Health Information Management [address] [place] [address] Scanning, Provider 08/15/2024 Nurse Triage [facility] [address] [address] Anthony Suero MD 08/04/2024 Results Follow-Up [facility] [address] [address] Verona Garcia NP Hyponatremia (Primary Dx) 07/30/2024 11:05 AM CDT Lab [facility] [address] [place] [address] Vitamin B12 deficiency; Essential hypertension 07/30/2024 10:30 AM CDT Office Visit [facility] [address] [address] Verona Garcia NP Essential hypertension (Primary Dx); Vitamin B12 deficiency; Pressure injury of right buttock, stage 1; Age-related osteoporosis without current pathological fracture; Parkinsonism, unspecified Parkinsonism type (HCC); Chronic hip pain, bilateral 07/29/2024 Nurse Triage [facility] [address] [phone] Anthony Suero MD 07/25/2024 Nurse Triage [facility] [address] [phone] Anthony Suero MD 07/17/2024 2:00 PM STATE GAME PROTECTOR Office Visit [facility] [address] [address] Lindsay Cruz NP Essential hypertension (Primary Dx); Pressure injury of right buttock, stage 1; Impaired hydration; BMI 25.0-25.9,adult 07/17/2024 10:30 AM STATE GAME PROTECTOR Office Visit [facility] [address] [place] [address] [place] [phone] Val Long MD Giant cell arteritis (HCC) (Primary Dx) 06/24/2024 11:00 AM STATE GAME PROTECTOR Office Visit [facility] [address] [place] [phone] Cece Dumont NP Skin tear of forearm without complication, left, initial encounter (Primary Dx) from Last 3 Months Allergies [...] tablet 07/17/19 25 025 Discontin ued(Reord er) Hospital, Clinic, or Other Facility Administered Medication [...] Plan (07/30/2024 1:17 PM CDT): Returning to [facility] for exercise which has provided improvement in the past. Will monitor response. Safety reviewed. Pressure injury of right buttock, stage 1 2024 Assessment & Plan (07/30/2024 1:14 PM CDT): No open areas. Reviewed position changes, soft surfaces. Get up and get moving as much as possible. Continue monitoring. Assessment & Plan (07/17/2024 2:56 PM STATE GAME PROTECTOR): Discussed position changes and off setting pressure with pillow under hip when sleeping. Advised to monitor and keep eye on to make sure it does not open. Will continue to monitor. Impaired hydration 07/17/2024 Assessment & Plan (07/17/2024 2:56 PM STATE GAME PROTECTOR): Discussed importance of drinking at least 3-4 water bottles (16 oz each) daily to ensure proper hydration but not causing fluid overload. BMI 25.0-25.9,adult 07/17/2024 Assessment & Plan (07/17/2024 2:57 PM STATE GAME PROTECTOR): Weight appropriate for patient. Parkinsonism, unspecified Parkinsonism type 01/2024 Assessment & Plan (07/30/2024 1:16 PM CDT): Following with Neurology. Encouraged to continue moving. Assessment & Plan (04/28/2024 4:22 PM STATE GAME PROTECTOR): Continue f/u with neurology and will montior respnose. WIll continue on sinemet. Closed compression fracture of L4 vertebra 10/17 Closed compression fracture of L3 vertebra 10/17 Assessment & Plan (04/28/2024 4:22 PM STATE GAME PROTECTOR): Sig pain relief s/p vertebroplasty and will continue to follow response. Closed compression fracture of L2 vertebra 10/17 Skin breakdown 06/13/2023 Assessment & Plan (06/13/2023 2:28 PM STATE GAME PROTECTOR): Continue topical dressing and will follow with home health. Stay off bottom as much as possible. When sitting sit on soft cushions. Hospital discharge follow-up 06/13/2023 Assessment & Plan (06/13/2023 2:29 PM STATE GAME PROTECTOR): IVerona NP have personally reviewed pertinent inpatient and/or ED records, including discharge medications and [employer] if applicable. This patient's discharge medication list has been reviewed and reconciled with her outpatient medication list and has also been reviewed with patient and/or caregiver. I have noted any changes. Mitral regurgitation 05/19/2023 Assessment & Plan (05/24/2023 11:56 AM STATE GAME PROTECTOR): Last TTE 04/2023 with no WMAs, EF [...] days Assessment & Plan (07/17/2024 3:25 PM STATE GAME PROTECTOR): Pt has completed her steroid taper. She [...] stimulus. Assessment & Plan (04/28/2024 4:20 PM STATE GAME PROTECTOR): Continue f/u with Dr. Mackenzie. Reduced prednisone [...] OU Assessment & Plan (07/27/2023 4:40 PM STATE GAME PROTECTOR): Despite the non-diagnostic temporal artery biopsy the [...] RNFL Assessment & Plan (06/17/2023 4:17 PM STATE GAME PROTECTOR): Seeing Rheumatology today to manage steroids. Exam [...] RNFL/GCC) Assessment & Plan (06/13/2023 2:29 PM STATE GAME PROTECTOR): Vision improving. She has follow-up with specialist. Will continue with prednisone. Assessment & Plan (05/25/2023 11:38 AM STATE GAME PROTECTOR): Pt reports vision blurriness for at least [...] 05/18/2023 Assessment & Plan (05/26/2023 9:47 AM STATE GAME PROTECTOR): -Ophtho exam 05/23 showing improvement in vision [...] 08/08/2021 Assessment & Plan (06/13/2023 2:27 PM STATE GAME PROTECTOR): Continue with topical antifungal on hand. Also recommend soaking with warm Epsom salt soak prior to applying medication. Will monitor response. Assessment & Plan (12/15/2021 9:56 AM CDT): Using topical OTC antifungal with mild improvement. Discussed need to continue treatment and monitoring. Assessment & Plan (08/08/2021 1:00 PM CDT): Discussed topical treatment options with patient and her son. Recommended avoiding nail Liberian during treatment. May need to use coupon from drug [employer] website for medication. Patient declined referral to podiatry. Osteoporosis without current pathological fractu re 01/03/2021 Assessment & Plan (07/30/2024 1:15 PM CDT): Have discussed with family, PCP, citrix architect regarding treatment options. Reviewed with son today as well. They will follow-up next month with a citrix architect to further discuss. Assessment & Plan (04/28/2024 4:21 PM STATE GAME PROTECTOR): See discussion as above. Patinet and family given information on Forteo and Evenity and discussion fo alternater mechanisms of action and also interaction with comorbiditeis. Reviewed fall prevention and patient is ambulating with assistance of a walker and rollator. Assessment & Plan (05/19/2023 1:14 AM STATE GAME PROTECTOR): - c/w home vit D. On calcium [...] home. Assessment & Plan (07/17/2024 2:54 PM STATE GAME PROTECTOR): Will trial decreasing Losartan to 50 mg and Amlodipine to 5 mg along with holding Lasix and using PRN. Will monitor blood pressure for any changes. Assessment & Plan (04/28/2024 4:23 PM STATE GAME PROTECTOR): Stable on lsoartan and metoprolol XL. No sig orthostasis. Cnotinues on amlodipine. Assessment & Plan (01/10/2024 2:20 PM CDT): Blood pressure is well controlled, continue present management. Assessment & Plan (05/24/2023 11:50 AM STATE GAME PROTECTOR): - BP meds restarted, initially held for [...] Will continue to monitor. Next OV with ore miner 02/08/21. Assessment & Plan (02/10/2020 10:24 AM CDT): Patient's blood pressure appears to be under adequate control. If additional treatment is required consideration to chlorthalidone 25 mg daily could be considered. Assessment & Plan (05/12/2019 5:28 AM STATE GAME PROTECTOR): Holding home losartan and amlodipine Patient was started on metoprolol. Paroxysmal SVT (supraventricular tachycardia) Assessment & Plan (04/28/2024 4:21 PM STATE GAME PROTECTOR): Continues on metoprolol XL and will follow response. Assessment & Plan (05/19/2023 1:06 AM STATE GAME PROTECTOR): Hx of this. No episodes in years. [...] regimen. Assessment & Plan (05/12/2019 5:35 AM STATE GAME PROTECTOR): Resolved with adenosine. The currently in sinus rhythm. Will continue with metoprolol. Non-STEMI (non-ST elevated myocardial infarction ) 05/12/2019 Assessment & Plan (05/12/2019 5:28 AM STATE GAME PROTECTOR): Patient currently denies any chest pain. Denies [...] 05/25/2023 Assessment & Plan (05/24/2023 12:07 PM STATE GAME PROTECTOR): UTI growing 100k E coli. Pt denies [...] on file Legal Sex Female 2:17 AM STATE GAME PROTECTOR Gender Identity Not on file Sexual Orientation [...] on file Medical Devices Implanted Type Area Sales Expert Home Theater Device Identifier Shelf Expiration Date Model / Serial / Lot [employer] Vertaplex Hv Autoplex Without Needle Delivery System Kit Bone [id number] - [id number] Implanted:Qty : 1 on 11/05/2023 by Harris Paez MD at [facility] Bone Cement N/A: Spine Lumbar [employer] 03/20/2025 [id number] / / [id number] Description:L2-L4 Procedures Procedure Name Priority Date/Time Associated Diagnosis Comments SCAN - RADIOLOGY/IMAGING 08/15/2024 EGFR Routine 07/30/2024 11:02 AM CDT Essential hypertension BASIC METABOLIC PANEL Routine 07/30/2024 11:02 AM CDT Essential hypertension VITAMIN B12 Routine 07/30/2024 11:02 AM CDT Vitamin B12 deficiency MARROQUIN VISUAL FIELD - OU - BOTH EYES Routine 07/17/2024 10:30 AM STATE GAME PROTECTOR Giant cell arteritis (HCC) SCAN - LABS [...] was last reviewed 2021. Testing performed by: [facility], [address] [place] [address], [place]., [address] Blood 07/30/2024 11:0 2 AM CDT 07/30/2024 6:13 PM CDT Verona Garcia NP LAB BLOOD ORDERABLES Final Result NAILA WHITTEN (EFREN) 1 [facility] [place] [address] * Vitamin B12 (07/30/2024 11:02 AM CDT) [facility] Vitamin B12 987 230 - 1,250 pg/mL Comment:Testing performed by : [facility], [address] [place] [address], [address] Blood 07/30/2024 11:0 2 AM CDT 07/30/2024 6:07 PM CDT Verona Garcia NP LAB BLOOD ORDERABLES Final Result Performing Organization Address City/[facility] Co de Phone Number NAILA WHITTEN (EFREN) 1 [place] [address] * (ABNORMAL) Basic metabolic panel (07/30/2024 11:02 AM CDT) [facility] Sodium 130(L) 135 - 145 mmol/L Comment:Testing performed by : [facility], [address] [place] [address]., [address] Potassium, pl 4.3 3.3 - 4.9 mmol/L [facility] (EFREN) Comment:Testing performed by : [facility], [address] [place] [address], [address] Chloride 96(L) 97 - 110 mmol/L [facility] (EFREN) Comment:Testing performed by : [facility], [address] [place] [address], [address] CO2 24 22 - 32 mmol/L [facility] (EFREN) Comment:Testing performed by : [address], [address] Anion gap 10 2 - 15 mmol/L [facility] (EFREN) Comment:Testing performed by : [address], [address] BUN 10 6 - 25 mg/dL [facility] (EFREN) Comment:Testing performed by : [address], [address] Creatinine 0.69 0.60 - 1.10 mg/dL [facility] (EFREN) Comment:Testing performed by : [address] [address] Glucose 84 70 - 199 mg/dL NAILA [...] was last revised 2022. Testing performed by: [facility], [address] [place] [address]., [address] Calcium 9.2 8.5 - 10.3 mg/dL NAILA WHITTEN (EFREN) Comment:Testing performed by : [address] [address] Blood 07/30/2024 11:0 2 AM CDT 07/30/2024 6:07 PM CDT Verona Garcia NP LAB BLOOD ORDERABLES Final Result NAILA WHITTEN (EFREN) 1 [facility] Department [place] [address] * Marroquin Visual Field - OU - Both Eyes (07/17/2024 10:30 AM STATE GAME PROTECTOR) Pathologist [facility] Pattern Deviation OS 7.37 CONTINUUM Pattern Deviation OD 5.62 CONTINUUM Mean Deviation OS -13.01 CONTINUUM Mean Deviation OD -27.57 CONTINUUM Anatomical Region Laterality Modality Head Visual Field Narrative 07/21/2024 8:30 AM STATE GAME PROTECTOR Right Eye Fixation was borderline. Reliability was poor. Mean Deviation was -27.57. Pattern Deviation was 5.62. Left Eye Fixation was borderline. Reliability was poor. Mean Deviation was -13.01. Pattern Deviation was 7.37. Notes False negatives OD 40%, false negatives and/A OS. Bilateral testing is very unreliable. Patient has a difficult time sitting in the scanner for that long Val Long MD [facility] VISUAL FIELD F inal Result * [...] Bone mineral density was performed on a [employer] Discovery Densitometer. Based on machine cross-calibration and [...] mineral density scan were prepared by Shira Peña)(Yvonne)(BD) CBDT who is accredited by the International Society of Clinical Densitometry. The overall patient assessment and scan interpretation were performed by Rylie Salinas M.D. who is certified by the International Society of Clinical Densitometry. [id number] Fracisco De Leon MD IMG DXA PROCEDURES Final Result from Last 3 Months or Most Recently Relevant to Health Maintenance Insurance [facility] MEDICARE ADVANTAGE [facility] MEDIC[facility]AGE [facility] MEDIC[facility] ADVANTAGE Advance Directives For more information, please contact: [phone] * Full Code (Latest Code Status on File) Date Activated Date Inactivated Comments 05/19/2023 2:01 AM 05/27/2023 7:22 PM * Full Code Date Activated Date Inactivated Comments 05/11/2019 8:20 PM 05/12/2019 7:47 PM Care Teams Fermentologist Relationship Specialty Start Date End Date Anthony Suero MD [address] [place] [address] PCP - General Family Medicine 11/12/19
--- OUTSIDE RECORDS SUMMARY | 2024-09-17 12:40 | XMS_ITS | Continuity of Care Document ---
Author Organization [facility] Address [address] [place] [address] Phone Care Team Providers Care Transportation Operations Manager Name Role Phone Boom Hernandez MD Unavailable Unavailable Advance Directives Directive Yes / No Effective Date File Name No Information Encounters Encounter Description Practice Location Reason(s) For Visit Diagnoses Date Provider Providers Copied on Encounter [facility], [address], [place], [place], [id number], [place] tel:[phone] SEC Srinivas Rosemary [place] No Information 1 David Nur. [address] [facility], [facility], [place], [place], [id number], [place]. tel:[phone] Family History Family Member Type Diagnosis Age [...]
--- OUTSIDE RECORDS SUMMARY | 2024-09-17 12:41 | XMS_ITS | Continuity of Care Document ---
Author Organization [facility] Address [address] [place] [address] Phone Care Team Providers Care Automatic Chief Name Role Phone Boom Hernandez MD Unavailable Unavailable Advance Directives Directive Yes / No Effective Date File Name No Information Encounters Encounter Description Practice Location Reason(s) For Visit Diagnoses Date Provider Providers Copied on Encounter [facility], [address], [place], [place], [id number], [place] tel:[phone] SEC Srinivas Rosemary [place] No Information 1 David Nur. [address] [facility], [place], [place], [id number], [place]. tel:[phone] Family History Family Member Type Diagnosis Age [...]
--- NOTE | 2024-09-17 12:50 | PC.NURSE ---
PT HAS DRANK SEVERAL GLASSES OF WATER AND BOTTLE OF WATER. AWAITING URINE SAMPLE PT REPORTS SHE CANNOT GO. ATTEMPTED EARLIER WITHOUT SUCCESS.
[2024-09-17 13:19] LABS: EDUAAPPEAR Cloudy; EDUABILI Negative (Negative); EDUABLOOD Trace (Negative); EDUACOLOR1 Yellow; EDUAGLUCOSE Negative (Negative); EDUAKETONE Negative (Negative); EDUALEUKO 1+ (Negative); EDUANITRATE Negative (Negative); EDUAPH 6.5; EDUAPROTEIN Negative (Negative); EDUAUROBILI 0.2
== END 2024-09-17 13:10 | disposition home or self-care (01) ==
PROVIDERS: Emergency Provider Nurse Practitioner Family; PCP Family Medicine
DX: N30.01 Acute cystitis with hematuria (principal); Z79.82 Long term (current) use of aspirin
CPT/HCPCS: 81003; 87077; 87086; 87186; 99213; G0463